=== PATIENT | male | born 1940 | race Caucasian/White ===

== ENCOUNTER 2017-08-04 19:06 | Emergency (ER) | payer OTHER, SELFPAY ==
[2017-08-04 19:27] VITALS: BP 181/100; PULSE 61; RESP 18; TEMP 36.5; O2SAT 95; BMI 27.0
[2017-08-04] MEDS: AMOXICILLIN/CLAV 875/125 MG 1 TAB PO (20:19)
--- NOTE | 2017-08-04 20:21 | ED_ITS ---
HPI - Dental/Oral <Norma Wiggins PA-C - Last Filed: 08/04/17 21:54> General Chief complaint: Dental/Oral Stated complaint: DENTAL INFECTION Time Seen by Provider: 08/04/17 19:41 Source: patient Mode of arrival: ambulatory Limitations: no limitations History of Present Illness HPI Narrative: This 76-year-old male was sent in by his dentist today due to worsening pain in his tooth sockets. He had all of his upper teeth pulled on Saturday. He states that he has had gradually worsening pain for the last 3 days , mostly along the front gum line. He states that his throat does feel somewhat sore, and feels like his neck glands are swollen. He states that he has not had any drainage from the tooth sockets. He has not had any chills or sweats or known fevers at home. He thinks his sinuses are a little bit congested, denies earache, denies cough, wheeze, dyspnea or other new symptoms. He states that his dentures have not been fitting correctly and causing irritation. He has been doing saline rinses, using ibuprofen and [place] as needed at home Related Data Home Medications Medication Instructions Recorded Confirmed MULTIVITAMIN (Multivitamin 1 cap PO Q DAY #0 04/01/10 -) VITAMIN C - Q DAY #0 04/01/10 (VITAMIN C) metoprolol succinate 12.5 mg PO DAILY 08/04/17 08/04/17 Previous Rx's Medication Instructions Recorded ibuprofen 800 mg PO TID PRN #45 tab 11/08/16 hydrocodone-acetaminophen 1 tab PO Q6HP PRN #15 tab 04/24/17 oxybutynin chloride 5 mg PO TID #90 tab 06/05/17 amoxicillin-pot clavulanate 1 tab PO Q12H 7 Days #14 tab 08/04/17 [Augmentin] Allergies Allergy/AdvReac Type Severity Reaction Status Date / Time No Known Allergies Allergy Uncoded 06/19/17 12:04 Review of Systems <Norma Wiggins PA-C - Last Filed: 08/04/17 21:54> Review of Systems All systems reviewed & are unremarkable except as noted in HPI and below Exam <AKANKSHA Keene Last Filed: 08/04/17 21:54> Narrative Exam Narrative: GENERAL APPEARANCE: Patient sitting comfortably, in no distress. HEAD: No sinus TTP. EYES: PERRL, EOMI. EARS: Normal auditory canals, TMS intact with dull light reflexes. ORAL CAVITY: Normal oropharynx. Along the upper labial surface gum line where the incisors and canines have been removed the gums have patchy erythema and edema, and are tender to touch, slightly more on the right. There is no drainage THROAT: Clear. NECK/THYROID: Neck supple, full range of motion, no cervical lymphadenopathy. LUNGS: Clear to auscultation bilaterally, clear to percussion, no cough on exam. HEART: RRR without murmur, nl S1, S2, no S3 or S4. Initial Vital Signs Initial Vital Signs: Vital Signs Temperature 97.7 F 08/04/17 19:27 Pulse Rate 61 08/04/17 19:27 Respiratory Rate 18 08/04/17 19:27 Blood Pressure 181/100 H 08/04/17 19:27 Pulse Oximetry 95 08/04/17 19:27 <DO Tona Hahn Last Filed: 08/05/17 03:02> Initial Vital Signs Initial Vital Signs: Vital Signs Temperature 97.7 F 08/04/17 19:27 Pulse Rate 61 08/04/17 19:27 Respiratory Rate 18 08/04/17 19:27 Blood Pressure 181/100 H 08/04/17 19:27 Pulse Oximetry 95 08/04/17 19:27 Course <Norma Wiggins PA-C - Last Filed: 08/04/17 21:54> Orders Ordered: Discontinued Medications Amoxicillin/Clavulanate Potassium (Augmentin 875-125 Mg) 1 tab PO NOW ONE Stop: 08/04/17 20:13 Last Admin: 08/04/17 20:19 Dose: 1 tab Vital Signs - 8 hr 08/04/17 19:27 08/04/17 20:36 Temperature 97.7 F Pulse Rate 61 60 Respiratory Rate 18 16 Blood Pressure 181/100 H 168/90 H Pulse Oximetry 95 98 <Zana Us DO - Last Filed: 08/05/17 03:02> Orders Ordered: Discontinued Medications Amoxicillin/Clavulanate Potassium (Augmentin 875-125 Mg) 1 tab PO NOW ONE Stop: 08/04/17 20:13 Last Admin: 08/04/17 20:19 Dose: 1 tab Vital Signs - 8 hr 08/04/17 19:27 08/04/17 20:36 Temperature 97.7 F Pulse Rate 61 60 Respiratory Rate 18 16 Blood Pressure 181/100 H 168/90 H Pulse Oximetry 95 98 Discharge Plan Departure Patient Disposition: Home, Self-Care Clinical Impression: Dental infection Discharge Date/Time: 08/04/17 20:37 Interventions: ED Discharge Assessment Last Done: 08/04/17 20:36 Instructions: DI for Dental Pain Activity Restrictions/Additional Instructions: Your upper gumline where you are having pain is swollen and red. This can be due to inflammation as well as infection, so continue your salt water rinses, continue current pain medications as needed. We have given you the 1st dose of antibiotic tonight. 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 Follow-up with your dentist on Saturday as planned to determine whether to continue the antibiotic Prescriptions: New amoxicillin-pot clavulanate [Augmentin] 875-125 mg tablet 1 tab PO Q12H 7 Days Qty: 14 RF: 0 No Action MULTIVITAMIN (Multivitamin -) 1 cap PO Q DAY Qty: 0 RF: 0 VITAMIN C - (VITAMIN C) Q DAY Qty: 0 RF: 0 ibuprofen 800 MG tablet 800 mg PO TID PRNQty: 45 RF: 3 hydrocodone-acetaminophen 5 MG/325 MG tablet 1 tab PO Q6HP PRNQty: 15 RF: 0 oxybutynin chloride 5 MG tablet 5 mg PO TID Qty: 90 RF: 0 metoprolol succinate 25 mg Tablet Extended Release 24 Hr 12.5 mg PO DAILY RF: 0 Referrals: Zachery Aleman DDS [Other] Gricelda Bowen DO [Primary Care Provider] - <Zana Us DO - Last Filed: 08/05/17 03:02> Cosign ED Attending Arabella Attestation: I was immediately available in the department for consultation. Documentation has been reviewed. I agree with assessment and plan.
[2017-08-04 20:36] VITALS: BP 168/90; PULSE 60; RESP 16; O2SAT 98
== END 2017-08-04 20:37 | disposition home or self-care (01) ==
PROVIDERS: Emergency Provider Internal Medicine; PCP Family Medicine
DX: K04.7 Periapical abscess without sinus (principal)
CPT/HCPCS: 99282; 99283

== ENCOUNTER → 2017-12-03 15:00 | Outpatient (CLI) | payer OTHER, SELFPAY | PROVIDERS: PCP Family Medicine | DX: Z23 Encounter for immunization (principal) | CPT/HCPCS: 90471; 90686 ==

== ENCOUNTER → 2018-03-28 12:39 | Outpatient (CLI) | payer OTHER, SELFPAY ==
--- NOTE | 2018-03-28 | DI.MRI.S_ITS ---
PROCEDURE: MR CERVICAL SPINE WO CON INDICATIONS: CERVICAL RADICULOPATHY TECHNIQUE: Noncontrast sagittal T1 spin echo and T2 fast spin echo, sagittal STIR, foraminal oblique sagittal T2 fast spin echo, and axial gradient echo or T2 fast spin echo through the cervical spine. COMPARISON: [facility], MR, C-SPINE WITHOUT CONTRAST, 11/12/2008, 9:19. [facility], MR, C-SPINE WITHOUT CONTRAST, 02/12/2014, 14:39. FINDINGS: Image quality: Diagnostic, with note made of motion artifact. Alignment and Curvature: There is normal bony alignment. Bone Marrow: Marrow demonstrates normal overall signal. Spinal Cord: Visualized spinal cord has normal size and signal. No cerebellar tonsillar herniation. Paraspinous Soft Tissues: No paravertebral masses. Prevertebral soft tissues are normal in thickness. C2-C3: The disc height is well-preserved. Loss of disc signal is seen at this level. Mild disc osteophyte complex is seen, which is eccentric to the right. There is moderate to severe right-sided neural foraminal narrowing. Mild left-sided neural foraminal narrowing is seen. Mild central canal narrowing is seen. When comparison is made with the prior examination, these findings are similar. C3-C4: Mild loss of disc height is seen. Loss of disc signal is seen. Moderate disc osteophyte complex is seen, which is eccentric to the left. There is moderate to prominent facet hypertrophy seen. Moderate to severe bilateral neural foraminal narrowing is seen at this level. Moderate central canal narrowing is seen. There is associated mild mass effect upon the ventral spinal cord. These imaging findings have progressed compared to the prior study. C4-C5: Mild loss of disc height is seen. Loss of disc signal is seen. Moderate disc osteophyte complex is seen, which is eccentric to the right. There is moderate to prominent right-sided and moderate left-sided facet hypertrophy seen. There is moderate to severe bilateral neural foraminal narrowing, right worse than left. Mild to moderate central canal narrowing is seen. These imaging findings are slightly progressed compared to 2014. C5-C6: Moderate loss of disc height is seen. Loss of disc signal is seen. Moderate to prominent disc osteophyte complex is seen, which is eccentric to the left. There is moderate to severe left-sided and moderate right-sided facet hypertrophy seen. There is moderate to severe bilateral neural foraminal narrowing seen, left worse than right. Mild to moderate central canal narrowing is seen, with mild mass effect upon the ventral spinal cord. These imaging findings are similar to the prior. C6-C7: Moderate loss of disc height is seen. Loss of disc signal is seen. Moderate to prominent disc osteophyte complex is seen. Uncovertebral joint hypertrophy is seen at this level. Mild to moderate facet hypertrophy is seen. There is moderate to severe bilateral neural foraminal narrowing seen. Mild central canal narrowing is seen. When comparison is made with the prior examination, these findings are similar. C7-T1: At least moderate loss of disc height and disc signal can be seen. Moderate generalized disc osteophyte complex is seen. Mild facet joint hypertrophy is seen. [id number] bilateral neural foraminal narrowing is seen. Mild central canal narrowing is seen. No significant change from the prior. 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 Dictated by: Peter Alonzo M.D. on 03/28/2018 at 12:17 Approved by: Peter Alonzo M.D. on 03/28/2018 at 12:24
== END ==
PROVIDERS: PCP Family Medicine; Visit Provider Orthopaedic Surgery
DX: M47.22 Other spondylosis with radiculopathy, cervical region (principal)
CPT/HCPCS: 72141

== ENCOUNTER → 2018-03-31 08:02 | Outpatient (CLI) | payer OTHER, SELFPAY ==
[2018-03-31 08:48] LABS: Add Manual Diff / Slide Review NO; Basophils Absolute Auto 100 /uL (0-100); Basophils Percent Auto 1.5 % (0-2); Eosinophils Absolute Auto 500 /uL (0-450); Eosinophils Percent Auto 8.2 % (2-4); Hematocrit 42.7 % (41-53); Hemoglobin 14.4 g/dL (13.5-17.5); Lymphocytes Absolute Auto 1600 /uL (1100-4500); Lymphocytes Percent Auto 25.9 % (25-40); Mean Corpuscular HGB Conc 33.6 % (30-36); Mean Corpuscular Hemoglobin 29.3 PG (26-34); Mean Corpuscular Volume 87.2 fL (80-100); Monocytes Absolute Auto 700 /uL (0-900); Monocytes Percent Auto 11.3 % (3-14); Neutrophils Absolute Auto 3300 /uL (1500-7000); Neutrophils Percent Auto 53.1 % (50-75); Platelet Count 239 X10^3/uL (150-400); Red Cell Distribution Width 15.2 % (11.6-14.8); White Blood Cell Count 6.1 X10^3/uL (4.5-11.0)
[2018-03-31 09:05] LABS: Alanine Aminotransferase 25 IU/L (21-72); Albumin 4.2 g/dL (3.5-5.0); Albumin Globulin Ratio 1.3 (1.0-2.8); Alkaline Phosphatase 53 U/L (38-126); Aspartate Aminotransferase 23 IU/L (17-59); BUN Creatinine Ratio 12.7 (6-22); Bilirubin Total 0.7 mg/dL (0.2-1.3); Blood Urea Nitrogen 14 mg/dL (9-20); Calcium 9.4 mg/dL (8.4-10.2); Carbon Dioxide 30 mmol/L (22-32); Chloride 106 mmol/L (98-107); Cholesterol 219 mg/dL (140-199); Estimated Glomerular Filt Rate > 60.0 mL/min (>60); Globulin 3.2 g/dL (1.7-4.1); Glucose 87 mg/dL (80-110); HDL Cholesterol 56 mg/dL (40-60); HEMOLYSIS < 15 (0-50); LDL Cholesterol Calculated 152 mg/dL (<100); Potassium 4.7 mmol/L (3.4-5.1); Sodium 143 mmol/L (137-145); Total Protein 7.4 g/dL (6.3-8.2); Triglycerides 54 mg/dL (35-150)
[2018-03-31 09:34] LABS: TSH w/ Reflex to FT4 3.65 uIU/mL (0.47-4.68)
== END ==
PROVIDERS: PCP Family Medicine; Visit Provider Family Medicine
DX: I25.10 Atherosclerotic heart disease of native coronary artery without angina pectoris (principal); Z12.5 Encounter for screening for malignant neoplasm of prostate; Z13.220 Encounter for screening for lipoid disorders
CPT/HCPCS: 36415; 80053; 80061; 84443; 85025; G0103

== ENCOUNTER → 2018-06-03 11:14 | Outpatient (CLI) | payer OTHER, SELFPAY ==
[2018-06-03 12:51] LABS: BUN Creatinine Ratio 16.4 (6-22); Blood Urea Nitrogen 18 mg/dL (9-20); Calcium 9.9 mg/dL (8.4-10.2); Carbon Dioxide 28 mmol/L (22-32); Chloride 103 mmol/L (98-107); Estimated Glomerular Filt Rate > 60.0 mL/min (>60); Glucose 78 mg/dL (80-110); HEMOLYSIS < 15 (0-50); Magnesium 2.2 mg/dL (1.6-2.3); Potassium 5.3 mmol/L (3.4-5.1); Sodium 139 mmol/L (137-145)
== END ==
PROVIDERS: PCP Family Medicine; Visit Provider Internal Medicine Cardiovascular Disease
DX: I10 Essential (primary) hypertension (principal); I49.3 Ventricular premature depolarization
CPT/HCPCS: 36415; 80048; 83735

== ENCOUNTER 2018-06-14 23:34 | Emergency (ER) | payer OTHER, SELFPAY ==
[2018-06-14 23:46] VITALS: BP 157/88; PULSE 65; RESP 15; TEMP 36.6; O2SAT 97
--- NOTE | 2018-06-14 23:48 | ED.SKABFB ---
HPI - Skin/Abscess/Foreign Bdy General Chief complaint: Skin/Abscess/Foreign Body Stated complaint: flu shot thurs, arm swollen and red Time Seen by Provider: 06/14/18 23:44 Source: patient Mode of arrival: ambulatory Limitations: no limitations History of Present Illness HPI narrative: Patient is a 77-year-old male who presents with left arm redness. He had a pneumonia vaccine 06/12/2018. He said it has hurt ever since then however tonight he noticed that it was red and warm. He has not had any fever no body aches or chills no confusion. It is very well localized in his left upper. MD complaint: rash Onset (ago): hour(s) Tetanus up to date: yes Location: LUE Severity: mild Related Data Home Medications Medication Instructions Recorded Confirmed MULTIVITAMIN (Multivitamin 1 cap PO Q DAY #0 04/01/10 -) VITAMIN C - Q DAY #0 04/01/10 (VITAMIN C) metoprolol succinate 12.5 mg PO DAILY 08/04/17 08/04/17 Previous Rx's Medication Instructions Recorded hydrocodone-acetaminophen 1 tab PO Q6HP PRN #15 tab 04/24/17 oxybutynin chloride 5 mg tablet 5 mg PO TID #90 tab 03/28/18 ibuprofen 800 mg tablet 800 mg PO TID PRN #45 tab 06/03/18 doxycycline hyclate 100 mg PO BID #14 cap 06/15/18 Allergies Allergy/AdvReac Type Severity Reaction Status Date / Time cephalexin [From Keflex] Allergy Verified 06/14/18 23:46 Review of Systems Review of Systems ROS Unobtainable: All systems reviewed & are unremarkable except as noted in HPI and below Cardiovascular Denies chest pain, Denies irregular heart rhythm, Denies lightheadedness, Denies palpitations, Denies dyspnea, Denies dyspnea on exertion and Denies orthopnea Respiratory Denies cough, Denies dyspnea, Denies dyspnea on exertion and Denies wheezing Gastrointestinal Gastrointestinal: Denies abdominal pain, Denies change in bowel habits, Denies diarrhea, Denies nausea and Denies vomiting Genitourinary Denies hematuria, Denies flank pain, Denies urinary incontinence and Denies urinary urgency Integumentary/Breasts Reports as per HPI Endocrine Denies palpitations Allergic/Immunologic Denies wheezing [facility], LAT[facility] Medical History BPH (benign prostatic hyperplasia) (Chronic) Coronary artery disease due to calcified coronary lesion (Chronic) HTN (hypertension) (Chronic) Hyperlipidemia (Chronic) Osteoarthritis (Chronic) Bladder cancer (Resolved) Surgical History History of angioplasty (03/11/15) History of cystoscopy History of knee replacement Status post laminectomy Family History (Updated 10/11/16 @ 00:00 by Gricelda Bowen DO) Father Prostate cancer Social History (Updated 08/04/17 @ 21:54 by Norma Wiggins PA-C) Smoking Status: Former smoker Family History Father Prostate cancer Social History Smoking Status: Former smoker Exam Initial Vital Signs Initial Vital Signs: Vital Signs Temperature 97.8 F 06/14/18 23:46 Pulse Rate 65 06/14/18 23:46 Respiratory Rate 15 06/14/18 23:46 Blood Pressure 157/88 H 06/14/18 23:46 Pulse Oximetry 97 06/14/18 23:46 GENERAL: Well-appearing, well-nourished and in no acute distress. HEENT: Head atraumatic,EOMI, pupils reactive, face symmetric, moist mucous membranes CARDIOVASCULAR: Regular rate and rhythm without murmurs, rubs or gallops. RESPIRATORY: Breath sounds equal bilaterally, no wheezes rales or rhonchi. ABDOMEN: Soft, nontender. Normoactive bowel sounds all 4 quadrants. No guarding or rebound. EXTREMITIES: Normal range of motion, no clubbing or edema. Neurovascularly intact NEUROLOGICAL: Alert and oriented x4.Normal gait and speech. SKIN: Erythema left upper arm 18 cm x 13 cm non circumferential no fluctuation no induration blanchable Course Orders Ordered: Discontinued Medications Doxycycline Hyclate (Vibramycin) 100 mg PO NOW ONE Stop: 06/15/18 00:03 Last Admin: 06/15/18 00:04 Dose: 100 mg Doxycycline Hyclate (Vibramycin) 100 mg PO NOW ONE Stop: 06/15/18 00:04 Last Admin: 06/15/18 00:04 Dose: 100 mg Vital Signs - 8 hr 06/14/18 23:46 Temperature 97.8 F Pulse Rate 65 Respiratory Rate 15 Blood Pressure 157/88 H Pulse Oximetry 97 MDM - Skin/Abscess/Foreign Bdy MDM Narrative Medical decision making narrative: At this time patient does not appear toxic or septic. Vitals are normal. It started this evening. He is awake alert and joyful. At this time I do not believe him to need blood work. He previously got C diff from Keflex. I discussed with them he may get C diff from any antibiotic. Will start him on doxycycline twice daily. Discharge Plan Departure Patient Disposition: Home Clinical Impression: Cellulitis Qualifiers: Site of cellulitis: extremity Site of cellulitis of extremity: upper extremity Laterality: left Qualified Code(s): L03.114 - Cellulitis of left upper limb Discharge Date/Time: 06/15/18 00:10 Interventions: ED Discharge Assessment Last Done: 06/15/18 00:08 Instructions: DI for Cellulitis -- Adult Activity Restrictions/Additional Instructions: *You have been diagnosed with cellulitis left upper arm *What to do: Monitor redness. redness should start to improve over the next 2-3 days. *Continue to take medications as directed Doxycycline 100 mg twice a day for 7 days --> SENT TO [facility] IN [place] *Follow up with your primary care provider in 2-3 days *Return to ER if you should have increasing redness significantly, pain, fever, confusion or any new, worsening or concerning symptoms Prescriptions: New doxycycline hyclate 100 mg capsule 100 mg PO BID Qty: 14 RF: 0 No Action MULTIVITAMIN (Multivitamin -) 1 cap PO Q DAY Qty: 0 RF: 0 VITAMIN C - (VITAMIN C) Q DAY Qty: 0 RF: 0 hydrocodone-acetaminophen 5 MG/325 MG tablet 1 tab PO Q6HP PRNQty: 15 RF: 0 oxybutynin chloride 5 mg tablet 5 mg PO TID Qty: 90 RF: 2 ibuprofen 800 mg tablet 800 mg PO TID PRN (Reason: fever or pain) Qty: 45 RF: 0 metoprolol succinate 25 mg Tablet Extended Release 24 Hr 12.5 mg PO DAILY RF: 0 Referrals: Gricelda Bowen DO [Primary Care Provider] -
--- NOTE | 2018-06-14 23:57 | ED_ITS ---
HPI - Skin/Abscess/Foreign Bdy General Chief complaint: Skin/Abscess/Foreign Body Stated complaint: flu shot thurs, arm swollen and red Time Seen by Provider: 06/14/18 23:44 Source: patient Mode of arrival: ambulatory Limitations: no limitations History of Present Illness HPI narrative: Patient is a 77-year-old male who presents with left arm redness. He had a pneumonia vaccine 06/12/2018. He said it has hurt ever since then however tonight he noticed that it was red and warm. He has not had any fever no body aches or chills no confusion. It is very well localized in his left upper. MD complaint: rash Onset (ago): hour(s) Tetanus up to date: yes Location: LUE Severity: mild Related Data Home Medications Medication Instructions Recorded Confirmed MULTIVITAMIN (Multivitamin 1 cap PO Q DAY #0 04/01/10 -) VITAMIN C - Q DAY #0 04/01/10 (VITAMIN C) metoprolol succinate 12.5 mg PO DAILY 08/04/17 08/04/17 Previous Rx's Medication Instructions Recorded hydrocodone-acetaminophen 1 tab PO Q6HP PRN #15 tab 04/24/17 oxybutynin chloride 5 mg tablet 5 mg PO TID #90 tab 03/28/18 ibuprofen 800 mg tablet 800 mg PO TID PRN #45 tab 06/03/18 doxycycline hyclate 100 mg PO BID #14 cap 06/15/18 Allergies Allergy/AdvReac Type Severity Reaction Status Date / Time cephalexin [From Keflex] Allergy Verified 06/14/18 23:46 Review of Systems Review of Systems ROS Unobtainable: All systems reviewed & are unremarkable except as noted in HPI and below Cardiovascular Denies chest pain, Denies irregular heart rhythm, Denies lightheadedness, Denies palpitations, Denies dyspnea, Denies dyspnea on exertion and Denies orthopnea Respiratory Denies cough, Denies dyspnea, Denies dyspnea on exertion and Denies wheezing Gastrointestinal Gastrointestinal: Denies abdominal pain, Denies change in bowel habits, Denies d iarrhea, Denies nausea and Denies vomiting Genitourinary Denies hematuria, Denies flank pain, Denies urinary incontinence and Denies urinary urgency Integumentary/Breasts Reports as per HPI Endocrine Denies palpitations Allergic/Immunologic Denies wheezing [facility] Medical History BPH (benign prostatic hyperplasia) (Chronic) Coronary artery disease due to calcified coronary lesion (Chronic) HTN (hypertension) (Chronic) Hyperlipidemia (Chronic) Osteoarthritis (Chronic) Bladder cancer (Resolved) Surgical History History of angioplasty (03/11/15) History of cystoscopy History of knee replacement Status post laminectomy Family History (Updated 10/11/16 @ 00:00 by Gricelda Bowen DO) Father Prostate cancer Social History (Updated 08/04/17 @ 21:54 by Norma Wiggins PA-C) Smoking Status: Former smoker Family History Father Prostate cancer Social History Smoking Status: Former smoker Exam Initial Vital Signs Initial Vital Signs: Vital Signs Temperature 97.8 F 06/14/18 23:46 Pulse Rate 65 06/14/18 23:46 Respiratory Rate 15 06/14/18 23:46 Blood Pressure 157/88 H 06/14/18 23:46 Pulse Oximetry 97 06/14/18 23:46 GENERAL: Well-appearing, well-nourished and in no acute distress. HEENT: Head atraumatic,EOMI, pupils reactive, face symmetric, moist mucous membranes CARDIOVASCULAR: Regular rate and rhythm without murmurs, rubs or gallops. RESPIRATORY: Breath sounds equal bilaterally, no wheezes rales or rhonchi. ABDOMEN: Soft, nontender. Normoactive bowel sounds all 4 quadrants. No guarding or rebound. EXTREMITIES: Normal range of motion, no clubbing or edema. Neurovascularly intact NEUROLOGICAL: Alert and oriented x4.Normal gait and speech. SKIN: Erythema left upper arm 18 cm x 13 cm non circumferential no fluctuation no induration blanchable Course Orders Ordered: Discontinued Medications Doxycycline Hyclate (Vibramycin) 100 mg PO NOW ONE Stop: 06/15/18 00:03 Last Admin: 06/15/18 00:04 Dose: 100 mg Doxycycline Hyclate (Vibramycin) 100 mg PO NOW ONE Stop: 06/15/18 00:04 Last Admin: 06/15/18 00:04 Dose: 100 mg Vital Signs - 8 hr 06/14/18 23:46 Temperature 97.8 F Pulse Rate 65 Respiratory Rate 15 Blood Pressure 157/88 H Pulse Oximetry 97 MDM - Skin/Abscess/Foreign Bdy MDM Narrative Medical decision making narrative: At this time patient does not appear toxic or septic. Vitals are normal. It started this evening. He is awake alert and joyful. At this time I do not believe him to need blood work. He previously got C diff from Keflex. I discussed with them he may get C diff from any antibiotic. Will start him on doxycycline twice daily. Discharge Plan Departure Patient Disposition: Home Clinical Impression: Cellulitis Qualifiers: Site of cellulitis: extremity Site of cellulitis of extremity: upper extremity Laterality: left Qualified Code(s): L03.114 - Cellulitis of left upper limb Discharge Date/Time: 06/15/18 00:10 Interventions: ED Discharge Assessment Last Done: 06/15/18 00:08 Instructions: DI for Cellulitis -- Adult Activity Restrictions/Additional Instructions: *You have been diagnosed with cellulitis left upper arm *What to do: Monitor redness. redness should start to improve over the next 2- 3 days. *Continue to take medications as directed Doxycycline 100 mg twice a day for 7 days --> SENT TO IN [place] *Follow up with your primary care provider in 2-3 days *Return to ER if you should have increasing redness significantly, pain, fever, confusion or any new, worsening or concerning symptoms Prescriptions: New doxycycline hyclate 100 mg capsule 100 mg PO BID Qty: 14 RF: 0 No Action MULTIVITAMIN (Multivitamin -) 1 cap PO Q DAY Qty: 0 RF: 0 VITAMIN C - (VITAMIN C) Q DAY Qty: 0 RF: 0 hydrocodone-acetaminophen 5 MG/325 MG tablet 1 tab PO Q6HP PRNQty: 15 RF: 0 oxybutynin chloride 5 mg tablet 5 mg PO TID Qty: 90 RF: 2 ibuprofen 800 mg tablet 800 mg PO TID PRN (Reason: fever or pain) Qty: 45 RF: 0 metoprolol succinate 25 mg Tablet Extended Release 24 Hr 12.5 mg PO DAILY RF: 0 Referrals: Gricelda Bowen DO [Primary Care Provider] -
[2018-06-15] MEDS: DOXYCYCLINE HYCLATE 100 MG TABLET PO ×2 (00:04)
== END 2018-06-15 00:10 | disposition home or self-care (01) ==
PROVIDERS: Emergency Provider Emergency Medicine; PCP Family Medicine
DX: L03.114 Cellulitis of left upper limb (principal)
CPT/HCPCS: 99282; 99283

== ENCOUNTER → 2018-06-18 07:16 | Outpatient (CLI) | payer OTHER, SELFPAY ==
[2018-06-18 09:24] LABS: BUN Creatinine Ratio 16.4 (6-22); Blood Urea Nitrogen 18 mg/dL (9-20); Calcium 9.9 mg/dL (8.4-10.2); Carbon Dioxide 27 mmol/L (22-32); Chloride 104 mmol/L (98-107); Estimated Glomerular Filt Rate > 60.0 mL/min (>60); Glucose 88 mg/dL (80-110); HEMOLYSIS < 15 (0-50); Sodium 141 mmol/L (137-145)
== END ==
PROVIDERS: PCP Family Medicine; Visit Provider Nurse Practitioner
DX: I10 Essential (primary) hypertension (principal)
CPT/HCPCS: 36415; 80048

== ENCOUNTER 2018-07-10 09:34 | Emergency (ER) | payer OTHER, SELFPAY ==
[2018-07-10] VITALS (10 sets, daily range): BP systolic 135–174; BP diastolic 76–90; PULSE 45–70; RESP 15–22; TEMP 36.3; O2SAT 95–98; BMI 26.9
--- NOTE | 2018-07-10 09:41 | DI.RAD.S_ITS ---
PROCEDURE: XR CHEST 1V INDICATIONS: chest pain TECHNIQUE: One view of the chest was acquired. COMPARISON: [facility], CHEST 2 VIEW, 09/09/2009, 10:55. [facility], CHEST 1 VIEW, 03/12/2015, 19:51. [facility], CHEST 2 VIEW, 05/13/2014, 14:03. [facility], CHEST 1 VIEW, 03/16/2015, 4:55. FINDINGS: Surgical changes and devices: None. Lungs and pleura: Lungs are clear. No pleural effusions or pneumothorax. The lungs are hyperexpanded. Mediastinum: The cardiac contours are within normal limits. The aorta demonstrates calcification and tortuosity. Bones and chest wall: Age-appropriate bony degenerative changes are seen. Truncation of the distal clavicles can be seen. No suspicious bony lesions. Overlying soft tissues appear unremarkable. IMPRESSION: No acute abnormality is seen on this portable chest study. Hyperexpanded lungs. Bony degenerative changes. Dictated by: Peter Alonzo M.D. on 07/10/2018 at 8:58 Approved by: Peter Alonzo M.D. on 07/10/2018 at 8:59
--- NOTE | 2018-07-10 09:41 | ED.ARRPALP ---
HPI - Arrhythmia/Palpitations General Chief Complaint: Chest Pain Stated Complaint: heart feels weird Time Seen by Provider: 07/10/18 09:38 Source: patient Mode of arrival: ambulatory Limitations: no limitations History of Present Illness HPI narrative: Patient is a 77-year-old male presenting with not feeling well. He has a history of coronary artery disease with multiple stents. When he has required stents in the never had chest pain but overall had a weird feeling. Today he started feeling weird after breakfast. He feels a little dizzy in his head. Dizziness isn't worse with movement or at rest. He denies room spinning. No weakness nos difficulty no chest pain or heart palpitations. He denies shortness of breath with exertion no syncopal or presyncopal episodes nodes, no nausea, no cough or fever. Can't quite pinpoint what is wrong today but is worried because of his history. Related Data Home Medications Medication Instructions Recorded Confirmed multivitamin 1 tab PO DAILY #0 04/01/10 07/10/18 metoprolol succinate 25 mg PO DAILY 08/04/17 07/10/18 Fish Oil 1 cap PO DAILY 07/10/18 07/10/18 Vitamin B 1 tab PO DAILY 07/10/18 07/10/18 aspirin 325 mg PO DAILY 07/10/18 07/10/18 lisinopril 20 mg PO DAILY 07/10/18 07/10/18 Previous Rx's Medication Instructions Recorded oxybutynin chloride 5 mg tablet 5 mg PO TID #90 tab 03/28/18 ibuprofen 800 mg tablet 800 mg PO TID PRN #45 tab 06/03/18 Allergies Allergy/AdvReac Type Severity Reaction Status Date / Time cephalexin [From Keflex] Allergy Verified 07/10/18 09:52 Review of Systems Review of Systems ROS Unobtainable: All systems reviewed & are unremarkable except as noted in HPI and below Constitutional Denies chills, Denies fever(s), Denies lethargy and Denies weakness Eyes Denies change in vision, Denies eye discharge, Denies irritation and Denies loss of vision ENT Ears, Nose, Mouth, and Throat: Denies change in voice, Denies neck pain and Denies sore throat Cardiovascular Denies chest pain, Denies irregular heart rhythm, Denies lightheadedness, Denies palpitations, Denies dyspnea, Denies dyspnea on exertion and Denies orthopnea Comments: Multiple cardiac stents Respiratory Denies cough, Denies dyspnea, Denies dyspnea on exertion and Denies wheezing Gastrointestinal Gastrointestinal: Denies abdominal pain, Denies change in bowel habits, Denies diarrhea, Denies nausea and Denies vomiting Genitourinary Denies hematuria, Denies flank pain, Denies urinary incontinence and Denies urinary urgency Musculoskeletal Denies neck pain Integumentary/Breasts Denies pruritus, Denies erythema, Denies rash and Denies wounds Neurologic Denies loss of vision and Denies weakness Endocrine Denies palpitations Allergic/Immunologic Denies wheezing [facility] Medical History BPH (benign prostatic hyperplasia) (Chronic) Coronary artery disease due to calcified coronary lesion (Chronic) HTN (hypertension) (Chronic) Hyperlipidemia (Chronic) Osteoarthritis (Chronic) Bladder cancer (Resolved) Surgical History History of angioplasty (03/11/15) History of cystoscopy History of knee replacement Status post laminectomy Family History Father Prostate cancer Social History Smoking Status: Former smoker Family History Father Prostate cancer Social History Smoking Status: Former smoker Exam Initial Vital Signs Initial Vital Signs: Vital Signs Pulse Rate 70 07/10/18 09:42 Respiratory Rate 15 07/10/18 09:42 Blood Pressure 174/86 H 07/10/18 09:42 Pulse Oximetry 98 07/10/18 09:42 GENERAL: Well-appearing, well-nourished and in no acute distress. HEENT: Head atraumatic,EOMI, pupils reactive, face symmetric, CARDIOVASCULAR: Regular rate and rhythm without murmurs, rubs or gallops. RESPIRATORY: Breath sounds equal bilaterally, no wheezes rales or rhonchi. ABDOMEN: Soft, nontender. Normoactive bowel sounds all 4 quadrants. No guarding or rebound. EXTREMITIES: Normal range of motion, no clubbing or edema. Neurovascularly intact NEUROLOGICAL: Alert and oriented x4.Normal gait and speech. Cranial nerves II through XII grossly intact. intelligence manager strength equal bilaterally 5+ on whole lower extremity strength equal as well SKIN: Warm, dry, no laceration, no petechiae, no rashes or lesions. Course Orders Ordered: ED Orders 07/10/18 09:41 XR chest 1V Stat EKG-12 Lead Stat 07/10/18 09:45 B Type Natriuretic Peptide Stat Complete Blood Count AUTO DIFF Stat Comprehensive Metabolic Panel Stat Lipase Stat Partial Thromboplastin Time Stat Prothrombin Time INR Stat Troponin & CK Cardiac Panel Stat 07/10/18 11:07 Urine Microscopic Stat 07/10/18 12:45 Troponin I Stat Discontinued Medications Aspirin (Aspirin Chew) 324 mg PO NOW ONE Stop: 07/10/18 09:42 Last Admin: 07/10/18 10:08 Dose: 324 mg Sodium Chloride (Normal Saline 0.9%) 1,000 mls @ 150 mls/hr IV CONT DIAZ Last Infusion: 07/10/18 14:18 Dose: 0 mls/hr Admin: 07/10/18 10:08 Dose: 150 mls/hr Vital Signs - 8 hr 07/10/18 10:13 07/10/18 10:32 07/10/18 11:04 Pulse Rate 56 L 51 L 53 L Respiratory Rate 21 18 19 Blood Pressure Blood Pressure [Right Arm] 153/85 H 148/88 H 151/90 H Pulse Oximetry 95 96 98 07/10/18 11:30 07/10/18 12:00 07/10/18 12:30 Pulse Rate 50 L 50 L Respiratory Rate 22 17 17 Blood Pressure Blood Pressure [Right Arm] 150/76 H 166/82 H 150/81 H Pulse Oximetry 98 98 07/10/18 13:30 07/10/18 14:18 Pulse Rate 45 L 57 L Respiratory Rate 15 16 Blood Pressure 135/79 Blood Pressure [Right Arm] 168/81 H Pulse Oximetry 98 MDM - Arrhythmia/Palpitations Lab Data Attestation: I reviewed the patient's lab results. Result diagrams: 07/10/18 09:45 07/10/18 09:45 Lab Results 07/10/18 07/10/18 07/10/18 Range/Units 09:45 09:45 09:45 WBC 4.9 (4.5-11.0) X10^3/uL RBC 5.12 (4.5-5.9) X10^6/uL Hgb 14.9 (13.5-17.5) g/dL Hct 44.6 (41-53) % MCV 87.1 (80-100) fL MCH 29.1 (26-34) PG MCHC 33.5 (30-36) % RDW 15.4 H (11.6-14.8) % Plt Count 223 (150-400) X10^3/uL Neut % (Auto) 44.9 L (50-75) % Lymph % (Auto) 38.2 (25-40) % Cache % (Auto) 10.6 (3-14) % Eos % (Auto) 4.8 H (2-4) % Baso % (Auto) 1.5 (0-2) % Neut # (Auto) 2200 (6458-4582) /uL Lymph # (Auto) 1900 (4062-2341) /uL [place] # (Auto) 500 (0-900) /uL Eos # (Auto) 200 (0-450) /uL Baso # (Auto) 100 (0-100) /uL PT 11.1 (10.1-12.7) SECONDS INR 1.0 (0.9-1.3) APTT 32 (26.4-36.2) SECONDS Sodium 140 (137-145) mmol/L Potassium 4.1 (3.4-5.1) mmol/L Chloride 104 (98-107) mmol/L Carbon Dioxide 29 (22-32) mmol/L BUN 20 (9-20) mg/dL Creatinine 1.00 (0.66-1.25) mg/dL Estimated GFR > 60.0 (>60) mL/min BUN/Creatinine Ratio 20.0 (6-22) Glucose 83 (80-110) mg/dL Calcium 9.7 (8.4-10.2) mg/dL Total Bilirubin 0.6 (0.2-1.3) mg/dL AST 23 (17-59) IU/L ALT 18 L (21-72) IU/L Alkaline Phosphatase 46 (38-126) U/L Total Creatine Kinase 59 (55-170) U/L CK-MB (CK-2) TNP CK-MB (CK-2) Rel Index TNP Troponin I < 0.012 (0.01-0.034) ng/mL B-Natriuretic Peptide < 100 (<100) Total Protein 7.4 (6.3-8.2) g/dL Albumin 4.2 (3.5-5.0) g/dL Globulin 3.2 (1.7-4.1) g/dL Albumin/Globulin Ratio 1.3 (1.0-2.8) Lipase 85 (23-300) U/L Urine RBC (0-5/HPF) Urine WBC (0-5/HPF) Urine Bacteria (None) Ur Culture Indicated? 07/10/18 07/10/18 Range/Units 11:07 12:45 WBC (4.5-11.0) X10^3/uL RBC (4.5-5.9) X10^6/uL Hgb (13.5-17.5) g/dL Hct (41-53) % MCV (80-100) fL MCH (26-34) PG MCHC (30-36) % RDW (11.6-14.8) % Plt Count (150-400) X10^3/uL Neut % (Auto) (50-75) % Lymph % (Auto) (25-40) % [place] % (Auto) (3-14) % Eos % (Auto) (2-4) % Baso % (Auto) (0-2) % Neut # (Auto) (7094-4601) /uL Lymph # (Auto) (0462-8858) /uL [place] # (Auto) (0-900) /uL Eos # (Auto) (0-450) /uL Baso # (Auto) (0-100) /uL PT (10.1-12.7) SECONDS INR (0.9-1.3) APTT (26.4-36.2) SECONDS Sodium (137-145) mmol/L Potassium (3.4-5.1) mmol/L Chloride (98-107) mmol/L Carbon Dioxide (22-32) mmol/L BUN (9-20) mg/dL Creatinine (0.66-1.25) mg/dL Estimated GFR (>60) mL/min BUN/Creatinine Ratio (6-22) Glucose (80-110) mg/dL Calcium (8.4-10.2) mg/dL Total Bilirubin (0.2-1.3) mg/dL AST (17-59) IU/L ALT (21-72) IU/L Alkaline Phosphatase (38-126) U/L Total Creatine Kinase (55-170) U/L CK-MB (CK-2) CK-MB (CK-2) Rel Index Troponin I < 0.012 (0.01-0.034) ng/mL B-Natriuretic Peptide (<100) Total Protein (6.3-8.2) g/dL Albumin (3.5-5.0) g/dL Globulin (1.7-4.1) g/dL Albumin/Globulin Ratio (1.0-2.8) Lipase (23-300) U/L Urine RBC 0-1/hpf (0-5/HPF) Urine WBC None seen (0-5/HPF) Urine Bacteria Occasional (0-1) (None) Ur Culture Indicated? Cult not indicated Urine Dip Bedside Urine Glucose Negative Bedside Urine Bilirubin - Negative Bedside Urine Ketone - Negative Urine Specific [place] 1.020 Bedside Urine Occult Blood +/- Bedside Urine pH 6.0 Bedside Urine Protein - Negative Bedside Urine Urobilinogen - Negative Bedside Urine Nitrite - Negative Bedside Urine Leukocytes - Negative Esterase Imaging Data Chest x-ray: Radiologist's impression: PROCEDURE: XR CHEST 1V INDICATIONS: chest pain TECHNIQUE: One view of the chest was acquired. COMPARISON: [facility], CHEST 2 VIEW, 09/09/2009, 10:55. [facility], CHEST 1 VIEW, 03/12/2015, 19:51. [facility], CHEST 2 VIEW, 05/13/2014, 14:03. [facility], CHEST 1 VIEW, 03/16/2015, 4:55. FINDINGS: Surgical changes and devices: None. Lungs and pleura: Lungs are clear. No pleural effusions or pneumothorax. The lungs are hyperexpanded. Mediastinum: The cardiac contours are within normal limits. The aorta demonstrates calcification and tortuosity. Bones and chest wall: Age-appropriate bony degenerative changes are seen. Truncation of the distal clavicles can be seen. No suspicious bony lesions. Overlying soft tissues appear unremarkable. IMPRESSION: No acute abnormality is seen on this portable chest study. Hyperexpanded lungs. Bony degenerative changes. Dictated by: Peter Alonzo M.D. on 07/10/2018 at 8:58 ECG Data Attestation: I personally reviewed and interpreted this ECG as follows: Prior ECG tracings: available for review Interpretation: EKG 1. Normal sinus rhythm rate 54 T-wave inversion noted in lead [address] elevation similar to previous EKG here interval 162 EKG 2. Normal sinus rhythm rate 49 similar to previous EKGs no change MDM Narrative Medical decision making narrative: Patient overall is feeling better than when he came in he has 2-troponins. He never had any chest pain or heart palpitations. Overall just feeling sort of weak but now feeling better, very vague symptoms. at this time I recommend outpatient follow-up. Discharge Plan Departure Patient Disposition: Home Clinical Impression: Atypical chest pain Discharge Date/Time: 07/10/18 14:05 Interventions: ED Discharge Assessment Last Done: 07/10/18 14:18 Instructions: DI for Atypical Chest Pain Activity Restrictions/Additional Instructions: *You have been diagnosed with atypical chest pain *What to do: Blood work EKGs x-ray all within normal limits *Continue to take medications as directed *Follow up with your primary care provider in 2-3 days *Return to ER if you should have weakness, strange feeling, dizziness or any new, worsening or concerning symptoms Prescriptions: No Action multivitamin Tablet 1 tab PO DAILY Qty: 0 RF: 0 oxybutynin chloride 5 mg tablet 5 mg PO TID Qty: 90 RF: 2 ibuprofen 800 mg tablet 800 mg PO TID PRN (Reason: fever or pain) Qty: 45 RF: 0 metoprolol succinate 25 mg Tablet Extended Release 24 Hr 25 mg PO DAILY RF: 0 lisinopril 20 mg Tablet 20 mg PO DAILY RF: 0 aspirin 325 mg Tablet 325 mg PO DAILY RF: 0 Fish Oil 1 cap PO DAILY RF: 0 Vitamin B 1 tab PO DAILY RF: 0 Referrals: Gricelda Bowen DO [Primary Care Provider] -
--- NOTE | 2018-07-10 10:03 | ED_ITS ---
HPI - Arrhythmia/Palpitations General Chief Complaint: Chest Pain Stated Complaint: heart feels weird Time Seen by Provider: 07/10/18 09:38 Source: patient Mode of arrival: ambulatory Limitations: no limitations History of Present Illness HPI narrative: Patient is a 77-year-old male presenting with not feeling well. He has a history of coronary artery disease with multiple stents. When he has required stents in the never had chest pain but overall had a weird feeling. Today he started feeling weird after breakfast. He feels a little dizzy in his head. Dizziness isn't worse with movement or at rest. He denies room spinning. No weakness nos difficulty no chest pain or heart palpitations. He denies shor tness of breath with exertion no syncopal or presyncopal episodes nodes, no nausea, no cough or fever. Can't quite pinpoint what is wrong today but is worried because of his history. Related Data Home Medications Medication Instructions Recorded Confirmed multivitamin 1 tab PO DAILY #0 04/01/10 07/10/18 metoprolol succinate 25 mg PO DAILY 08/04/17 07/10/18 Fish Oil 1 cap PO DAILY 07/10/18 07/10/18 Vitamin B 1 tab PO DAILY 07/10/18 07/10/18 aspirin 325 mg PO DAILY 07/10/18 07/10/18 lisinopril 20 mg PO DAILY 07/10/18 07/10/18 Previous Rx's Medication Instructions Recorded oxybutynin chloride 5 mg tablet 5 mg PO TID #90 tab 03/28/18 ibuprofen 800 mg tablet 800 mg PO TID PRN #45 tab 06/03/18 Allergies Allergy/AdvReac Type Severity Reaction Status Date / Time cephalexin [From Keflex] Allergy Verified 07/10/18 09:52 Review of Systems Review of Systems ROS Unobtainable: All systems reviewed & are unremarkable except as noted in HPI and below Constitutional Denies chills, Denies fever(s), Denies lethargy and Denies weakness Eyes Denies change in vision, Denies eye discharge, Denies irritation and Denies loss of vision ENT Ears, Nose, Mouth, and Throat: Denies change in voice, Denies neck pain and Denies sore throat Cardiovascular Denies chest pain, Denies irregular heart rhythm, Denies lightheadedness, Denies palpitations, Denies dyspnea, Denies dyspnea on exertion and Denies orthopnea Comments: Multiple cardiac stents Respiratory Denies cough, Denies dyspnea, Denies dyspnea on exertion and Denies wheezing Gastrointestinal Gastrointestinal: Denies abdominal pain, Denies change in bowel habits, Denies diarrhea, Denies nausea and Denies vomiting Genitourinary Denies hematuria, Denies flank pain, Denies urinary incontinence and Denies urinary urgency Musculoskeletal Denies neck pain Integumentary/Breasts Denies pruritus, Denies erythema, Denies rash and Denies wounds Neurologic Denies loss of vision and Denies weakness Endocrine Denies palpitations Allergic/Immunologic Denies wheezing [facility] Medical History BPH (benign prostatic hyperplasia) (Chronic) Coronary artery disease due to calcified coronary lesion (Chronic) HTN (hypertension) (Chronic) Hyperlipidemia (Chronic) Osteoarthritis (Chronic) Bladder cancer (Resolved) Surgical History History of angioplasty (03/11/15) History of cystoscopy History of knee replacement Status post laminectomy Family History Father Prostate cancer Social History Smoking Status: Former smoker Family History Father Prostate cancer Social History Smoking Status: Former smoker Exam Initial Vital Signs Initial Vital Signs: Vital Signs Pulse Rate 70 07/10/18 09:42 Respiratory Rate 15 07/10/18 09:42 Blood Pressure 174/86 H 07/10/18 09:42 Pulse Oximetry 98 07/10/18 09:42 GENERAL: Well-appearing, well-nourished and in no acute distress. HEENT: Head atraumatic,EOMI, pupils reactive, face symmetric, CARDIOVASCULAR: Regular rate and rhythm without murmurs, rubs or gallops. RESPIRATORY: Breath sounds equal bilaterally, no wheezes rales or rhonchi. ABDOMEN: Soft, nontender. Normoactive bowel sounds all 4 quadrants. No guarding or rebound. EXTREMITIES: Normal range of motion, no clubbing or edema. Neurovascularly intact NEUROLOGICAL: Alert and oriented x4.Normal gait and speech. Cranial nerves II through XII grossly intact. family sociologist strength equal bilaterally 5+ on whole lower extremity strength equal as well SKIN: Warm, dry, no laceration, no petechiae, no rashes or lesions. Course Orders Ordered: ED Orders 07/10/18 09:41 XR chest 1V Stat EKG-12 Lead Stat 07/10/18 09:45 B Type Natriuretic Peptide Stat Complete Blood Count AUTO DIFF Stat Comprehensive Metabolic Panel Stat Lipase Stat Partial Thromboplastin Time Stat Prothrombin Time INR Stat Troponin & CK Cardiac Panel Stat 07/10/18 11:07 Urine Microscopic Stat 07/10/18 12:45 Troponin I Stat Discontinued Medications Aspirin (Aspirin Chew) 324 mg PO NOW ONE Stop: 07/10/18 09:42 Last Admin: 07/10/18 10:08 Dose: 324 mg Sodium Chloride (Normal Saline 0.9%) 1,000 mls @ 150 mls/hr IV CONT DIAZ Last Infusion: 07/10/18 14:18 Dose: 0 mls/hr Admin: 07/10/18 10:08 Dose: 150 mls/hr Vital Signs - 8 hr 07/10/18 10:13 07/10/18 10:32 07/10/18 11:04 Pulse Rate 56 L 51 L 53 L Respiratory Rate 21 18 19 Blood Pressure Blood Pressure [Right Arm] 153/85 H 148/88 H 151/90 H Pulse Oximetry 95 96 98 07/10/18 11:30 07/10/18 12:00 07/10/18 12:30 Pulse Rate 50 L 50 L Respiratory Rate 22 17 17 Blood Pressure Blood Pressure [Right Arm] 150/76 H 166/82 H 150/81 H Pulse Oximetry 98 98 07/10/18 13:30 07/10/18 14:18 Pulse Rate 45 L 57 L Respiratory Rate 15 16 Blood Pressure 135/79 Blood Pressure [Right Arm] 168/81 H Pulse Oximetry 98 MDM - Arrhythmia/Palpitations Lab Data Attestation: I reviewed the patient's lab results. Result diagrams: 07/10/18 09:45 07/10/18 09:45 Lab Results 07/10/18 07/10/18 07/10/18 Range/Units 09:45 09:45 09:45 WBC 4.9 (4.5-11.0) X10^3/uL RBC 5.12 (4.5-5.9) X10^6/uL Hgb 14.9 (13.5-17.5) g/dL Hct 44.6 (41-53) % MCV 87.1 (80-100) fL MCH 29.1 (26-34) PG MCHC 33.5 (30-36) % RDW 15.4 H (11.6-14.8) % Plt Count 223 (150-400) X10^3/uL Neut % (Auto) 44.9 L (50-75) % Lymph % (Auto) 38.2 (25-40) % [place] % (Auto) 10.6 (3-14) % Eos % (Auto) 4.8 H (2-4) % Baso % (Auto) 1.5 (0-2) % Neut # (Auto) 2200 (2003-3534) /uL Lymph # (Auto) 1900 (2467-8691) /uL [place] # (Auto) 500 (0-900) /uL Eos # (Auto) 200 (0-450) /uL Baso # (Auto) 100 (0-100) /uL PT 11.1 (10.1-12.7) SECONDS INR 1.0 (0.9-1.3) APTT 32 (26.4-36.2) SECONDS Sodium 140 (137-145) mmol/L Potassium 4.1 (3.4-5.1) mmol/L Chloride 104 (98-107) mmol/L Carbon Dioxide 29 (22-32) mmol/L BUN 20 (9-20) mg/dL Creatinine 1.00 (0.66-1.25) mg/dL Estimated GFR > 60.0 (>60) mL/min BUN/Creatinine Ratio 20.0 (6-22) Glucose 83 (80-110) mg/dL Calcium 9.7 (8.4-10.2) mg/dL Total Bilirubin 0.6 (0.2-1.3) mg/dL AST 23 (17-59) IU/L ALT 18 L (21-72) IU/L Alkaline Phosphatase 46 (38-126) U/L Total Creatine Kinase 59 (55-170) U/L CK-MB (CK-2) TNP CK-MB (CK-2) Rel Index TNP Troponin I < 0.012 (0.01-0.034) ng/mL B-Natriuretic Peptide < 100 (<100) Total Protein 7.4 (6.3-8.2) g/dL Albumin 4.2 (3.5-5.0) g/dL Globulin 3.2 (1.7-4.1) g/dL Albumin/Globulin Ratio 1.3 (1.0-2.8) Lipase 85 (23-300) U/L Urine RBC (0-5/HPF) Urine WBC (0-5/HPF) Urine Bacteria (None) Ur Culture Indicated? 07/10/18 07/10/18 Range/Units 11:07 12:45 WBC (4.5-11.0) X10^3/uL RBC (4.5-5.9) X10^6/uL Hgb (13.5-17.5) g/dL Hct (41-53) % MCV (80-100) fL MCH (26-34) PG MCHC (30-36) % RDW (11.6-14.8) % Plt Count (150-400) X10^3/uL Neut % (Auto) (50-75) % Lymph % (Auto) (25-40) % [place] % (Auto) (3-14) % Eos % (Auto) (2-4) % Baso % (Auto) (0-2) % Neut # (Auto) (5405-2375) /uL Lymph # (Auto) (8287-2263) /uL [place] # (Auto) (0-900) /uL Eos # (Auto) (0-450) /uL Baso # (Auto) (0-100) /uL PT (10.1-12.7) SECONDS INR (0.9-1.3) APTT (26.4-36.2) SECONDS Sodium (137-145) mmol/L Potassium (3.4-5.1) mmol/L Chloride (98-107) mmol/L Carbon Dioxide (22-32) mmol/L BUN (9-20) mg/dL Creatinine (0.66-1.25) mg/dL Estimated GFR (>60) mL/min BUN/Creatinine Ratio (6-22) Glucose (80-110) mg/dL Calcium (8.4-10.2) mg/dL Total Bilirubin (0.2-1.3) mg/dL AST (17-59) IU/L ALT (21-72) IU/L Alkaline Phosphatase (38-126) U/L Total Creatine Kinase (55-170) U/L CK-MB (CK-2) CK-MB (CK-2) Rel Index Troponin I < 0.012 (0.01-0.034) ng/mL B-Natriuretic Peptide (<100) Total Protein (6.3-8.2) g/dL Albumin (3.5-5.0) g/dL Globulin (1.7-4.1) g/dL Albumin/Globulin Ratio (1.0-2.8) Lipase (23-300) U/L Urine RBC 0-1/hpf (0-5/HPF) Urine WBC None seen (0-5/HPF) Urine Bacteria Occasional (0-1) (None) Ur Culture Indicated? Cult not indicated Urine Dip Bedside Urine Glucose Negative Bedside Urine Bilirubin - Negative Bedside Urine Ketone - Negative Urine Specific [place] 1.020 Bedside Urine Occult Blood +/- Bedside Urine pH 6.0 Bedside Urine Protein - Negative Bedside Urine Urobilinogen - Negative Bedside Urine Nitrite - Negative Bedside Urine Leukocytes - Negative Esterase Imaging Data Chest x-ray: Radiologist's impression: PROCEDURE: XR CHEST 1V INDICATIONS: chest pain TECHNIQUE: One view of the chest was acquired. COMPARISON: [facility], CHEST 2 VIEW, 09/09/2009, 10:55. [facility], CHEST 1 VIEW, 03/12/2015, 19:51. [facility], CHEST 2 VIEW, 05/13/2014, 14:03. [facility], CHEST 1 VIEW, 03/16/2015, 4:55. FINDINGS: Surgical changes and devices: None. Lungs and pleura: Lungs are clear. No pleural effusions or pneumothorax. The lungs are hyperexpanded. Mediastinum: The cardiac contours are within normal limits. The aorta demonstrates calcification and tortuosity. Bones and chest wall: Age-appropriate bony degenerative changes are seen. Truncation of the distal clavicles can be seen. No suspicious bony lesions. Overlying soft tissues appear unremarkable. IMPRESSION: No acute abnormality is seen on this portable chest study. Hyperexpanded lungs. Bony degenerative changes. Dictated by: Peter Alonzo M.D. on 07/10/2018 at 8:58 ECG Data Attestation: I personally reviewed and interpreted this ECG as follows: Prior ECG tracings: available for review Interpretation: EKG 1. Normal sinus rhythm rate 54 T-wave inversion noted in lead [address] elevation similar to previous EKG here interval 162 EKG 2. Normal sinus rhythm rate 49 similar to previous EKGs no change MDM Narrative Medical decision making narrative: Patient overall is feeling better than when he came in he has 2-troponins. He never had any chest pain or heart palpitations. Overall just feeling sort of weak but now feeling better, very vague symptoms. at this time I recommend outpatient follow-up. Discharge Plan Departure Patient Disposition: Home Clinical Impression: Atypical chest pain Discharge Date/Time: 07/10/18 14:05 Interventions: ED Discharge Assessment Last Done: 07/10/18 14:18 Instructions: DI for Atypical Chest Pain Activity Restrictions/Additional Instructions: *You have been diagnosed with atypical chest pain *What to do: Blood work EKGs x-ray all within normal limits *Continue to take medications as directed *Follow up with your primary care provider in 2-3 days *Return to ER if you should have weakness, strange feeling, dizziness or any new, worsening or concerning symptoms Prescriptions: No Action multivitamin Tablet 1 tab PO DAILY Qty: 0 RF: 0 oxybutynin chloride 5 mg tablet 5 mg PO TID Qty: 90 RF: 2 ibuprofen 800 mg tablet 800 mg PO TID PRN (Reason: fever or pain) Qty: 45 RF: 0 metoprolol succinate 25 mg Tablet Extended Release 24 Hr 25 mg PO DAILY RF: 0 lisinopril 20 mg Tablet 20 mg PO DAILY RF: 0 aspirin 325 mg Tablet 325 mg PO DAILY RF: 0 Fish Oil 1 cap PO DAILY RF: 0 Vitamin B 1 tab PO DAILY RF: 0 Referrals: Gricelda Bowen DO [Primary Care Provider] -
[2018-07-10] MEDS: SODIUM CHLORIDE 0.9% 1,000 ML 150 ML IV (10:08)
[2018-07-10] MEDS: ASPIRIN 81 MG TAB 324 MG PO (10:08)
[2018-07-10 10:11] LABS: Add Manual Diff / Slide Review NO; Basophils Absolute Auto 100 /uL (0-100); Basophils Percent Auto 1.5 % (0-2); Eosinophils Absolute Auto 200 /uL (0-450); Eosinophils Percent Auto 4.8 % (2-4); Hematocrit 44.6 % (41-53); Hemoglobin 14.9 g/dL (13.5-17.5); Lymphocytes Absolute Auto 1900 /uL (1100-4500); Lymphocytes Percent Auto 38.2 % (25-40); Mean Corpuscular HGB Conc 33.5 % (30-36); Mean Corpuscular Hemoglobin 29.1 PG (26-34); Mean Corpuscular Volume 87.1 fL (80-100); Monocytes Absolute Auto 500 /uL (0-900); Monocytes Percent Auto 10.6 % (3-14); Neutrophils Absolute Auto 2200 /uL (1500-7000); Neutrophils Percent Auto 44.9 % (50-75); Platelet Count 223 X10^3/uL (150-400); Prothrombin Time 11.1 SECONDS (10.1-12.7); Red Blood Cell Count 5.12 X10^6/uL (4.5-5.9); Red Cell Distribution Width 15.4 % (11.6-14.8); White Blood Cell Count 4.9 X10^3/uL (4.5-11.0)
[2018-07-10 10:14] LABS: PTT Partial Thromboplastin Tim 32 SECONDS (26.4-36.2)
[2018-07-10 10:16] LABS: Alanine Aminotransferase 18 IU/L (21-72); Albumin 4.2 g/dL (3.5-5.0); Albumin Globulin Ratio 1.3 (1.0-2.8); Alkaline Phosphatase 46 U/L (38-126); Aspartate Aminotransferase 23 IU/L (17-59); Bilirubin Total 0.6 mg/dL (0.2-1.3); Blood Urea Nitrogen 20 mg/dL (9-20); Calcium 9.7 mg/dL (8.4-10.2); Carbon Dioxide 29 mmol/L (22-32); Chloride 104 mmol/L (98-107); Creatine Kinase 59 U/L (55-170); Estimated Glomerular Filt Rate > 60.0 mL/min (>60); Globulin 3.2 g/dL (1.7-4.1); Glucose 83 mg/dL (80-110); HEMOLYSIS < 15 (0-50); Lipase 85 U/L (23-300); Potassium 4.1 mmol/L (3.4-5.1); Sodium 140 mmol/L (137-145); Total Protein 7.4 g/dL (6.3-8.2)
[2018-07-10 10:28] LABS: Troponin I < 0.012 ng/mL (0.01-0.034)
[2018-07-10 11:09] LABS: WBC Urine None Seen (0-5/HPF)
[2018-07-10 11:23] LABS: Bacteria Urine Occasional (0-1); Culture Indicated Urine Cult Not Indicated; RBC Urine 0-1/HPF (0-5/HPF)
[2018-07-10 11:30] LABS: B Type Natriuretic Peptide < 100 (<100)
[2018-07-10 13:23] LABS: Troponin I < 0.012 ng/mL (0.01-0.034)
== END 2018-07-10 14:05 | disposition home or self-care (01) ==
PROVIDERS: Emergency Provider Emergency Medicine; PCP Family Medicine
DX: R07.89 Other chest pain (principal); R42 Dizziness and giddiness; Z86.79 Personal history of other diseases of the circulatory system; Z95.818 Presence of other cardiac implants and grafts
CPT/HCPCS: 36415; 36591; 71045; 80053; 81003; 81015; 82550; 83690; 83880; 84484; 85025; 85610; 85730; 93005; 96360; 96361; 99285

== ENCOUNTER 2018-07-14 11:05 | Emergency (ER) | payer OTHER, SELFPAY ==
[2018-07-14 11:15] VITALS: BP 127/92; PULSE 85; RESP 13; TEMP 36.6; O2SAT 99
[2018-07-14 11:30] VITALS: BP 118/83; PULSE 67; RESP 21; O2SAT 97
[2018-07-14 12:00] VITALS: BP 122/74; PULSE 79; RESP 19; O2SAT 96
--- NOTE | 2018-07-14 12:24 | ED.GENADULT ---
HPI - General Adult General Chief complaint: Dizziness Stated complaint: heart issues, sob, dizzy Time Seen by Provider: 07/14/18 12:23 Source: patient Mode of arrival: ambulatory Limitations: no limitations History of Present Illness HPI narrative: Patient is a 77-year-old male. No known coronary artery disease with a history of 7 stents placed in the past. Is on lisinopril and metoprolol. Was seen here in the emergency department a couple days ago for chest pain. 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 He states that since he was seen here in the emergency department he has had a couple other episodes of the chest discomfort. He does state that it happened on Saturday when he was on a hike. Did get better after a stop. He states that this morning he played golf in the last several holes of his golf around he had chest pain and not feeling well. Upon arrival here to the emergency department was symptom-free. Related Data Home Medications Medication Instructions Recorded Confirmed multivitamin 1 tab PO DAILY #0 04/01/10 07/14/18 metoprolol succinate 25 mg PO DAILY 08/04/17 07/14/18 Fish Oil 1 cap PO DAILY 07/10/18 07/14/18 Vitamin B 1 tab PO DAILY 07/10/18 07/14/18 aspirin 325 mg PO DAILY 07/10/18 07/14/18 lisinopril 20 mg PO DAILY 07/10/18 07/14/18 Previous Rx's Medication Instructions Recorded oxybutynin chloride 5 mg tablet 5 mg PO TID #90 tab 03/28/18 ibuprofen 800 mg tablet 800 mg PO TID PRN #45 tab 06/03/18 Allergies Allergy/AdvReac Type Severity Reaction Status Date / Time cephalexin [From Keflex] Allergy Verified 07/10/18 09:52 Review of Systems Constitutional Denies fever(s) and Denies headache(s) ENT Ears, Nose, Mouth, and Throat: Denies vertigo and Denies headache(s) Cardiovascular Reports chest pain, Denies rapid heart rate, Denies edema and Denies dyspnea Respiratory Denies dyspnea Gastrointestinal Gastrointestinal: Denies abdominal pain, Denies nausea and Denies vomiting Genitourinary Denies dysuria Integumentary/Breasts Denies rash Neurologic Denies confusion, Denies vertigo and Denies headache(s) Psychiatric Denies confusion Hematologic/Lymphatic Denies easy bleeding and Denies easy bruising Allergic/Immunologic Denies urticaria PFSH Medical History BPH (benign prostatic hyperplasia) (Chronic) Coronary artery disease due to calcified coronary lesion (Chronic) HTN (hypertension) (Chronic) Hyperlipidemia (Chronic) Osteoarthritis (Chronic) Bladder cancer (Resolved) Surgical History History of angioplasty (03/11/15) History of cystoscopy History of knee replacement Status post laminectomy Family History Father Prostate cancer Social History Smoking Status: Former smoker Social History Smoking Status: Former smoker Exam Initial Vital Signs Initial Vital Signs: Vital Signs Temperature 97.8 F 07/14/18 11:15 Pulse Rate 85 07/14/18 11:15 Respiratory Rate 13 07/14/18 11:15 Blood Pressure 127/92 H 07/14/18 11:15 Pulse Oximetry 99 07/14/18 11:15 Const General: cooperative, healthy appearing, comfortable, well developed, well groomed and No acute distress Orientation: alert, awake and oriented x3 HENMT Head: normal to inspection and normocephalic Resp Effort & Inspection: normal respiratory effort Auscultation: clear to auscultation bilaterally Cardio Rate: regular rate Rhythm: regular rhythm Pulses: radial pulses present GI Inspection: non-distended Palpation: soft and No firm Skin Lesions: no lesions Rashes: no rashes Neuro General: alert, awake and oriented x3 Cognition: normal cognition Speech: speech normal Motor: muscle tone normal throughout Sensory Exam: no sensory deficits noted Extrem General: normal to inspection and capillary refill normal Psych Appearance: grossly normal and well kempt Scores GCS Gemma coma scale eye opening: Spontaneous Gemma coma scale verbal response: Orientated [place] coma scale motor response: Obey commands [place] coma scale total score: 15 HEART Score Heart Score history: Slightly Suspicious Heart Score EKG: Non-Specific repolarization disturbance Heart Score Age: > or = 65 years old Heart Score risk factors: > 3 risk factors or hx of atherosclerotic disease Heart Score troponin: < or = to normal limit Heart Score Total: 5 Course Orders Ordered: ED Orders 07/14/18 11:14 EKG-12 Lead Stat 07/14/18 12:12 Complete Blood Count AUTO DIFF Stat Comprehensive Metabolic Panel Stat Lipase Stat Partial Thromboplastin Time Stat Prothrombin Time INR Stat Troponin I Stat Discontinued Medications Aspirin (Aspirin Chew) 324 mg PO NOW ONE Stop: 07/14/18 16:21 Vital Signs - 8 hr 07/14/18 11:15 07/14/18 11:30 07/14/18 12:00 Temperature 97.8 F Pulse Rate 85 67 79 Respiratory Rate 13 21 19 Blood Pressure 127/92 H Blood Pressure [Right Arm] 118/83 122/74 Pulse Oximetry 99 97 96 07/14/18 13:00 Temperature Pulse Rate 58 L Respiratory Rate 19 Blood Pressure Blood Pressure [Right Arm] 138/62 Pulse Oximetry 95 Medical Decision Making Lab Data Lab results reviewed: Yes I reviewed the patient's lab results. Result diagrams: 07/14/18 12:12 07/14/18 12:12 Lab Results 07/14/18 07/14/18 07/14/18 Range/Units 12:12 12:12 12:12 WBC 5.6 (4.5-11.0) X10^3/uL RBC 4.94 (4.5-5.9) X10^6/uL Hgb 14.4 (13.5-17.5) g/dL Hct 43.0 (41-53) % MCV 87.0 (80-100) fL MCH 29.0 (26-34) PG MCHC 33.4 (30-36) % RDW 14.5 (11.6-14.8) % Plt Count 212 (150-400) X10^3/uL Neut % (Auto) 53.1 (50-75) % Lymph % (Auto) 30.2 (25-40) % Logan % (Auto) 9.6 (3-14) % Eos % (Auto) 5.9 H (2-4) % Baso % (Auto) 1.2 (0-2) % Neut # (Auto) 2900 (9149-6818) /uL Lymph # (Auto) 1700 (0285-9211) /uL Logan # (Auto) 500 (0-900) /uL Eos # (Auto) 300 (0-450) /uL Baso # (Auto) 100 (0-100) /uL PT 11.2 (10.1-12.7) SECONDS INR 1.0 (0.9-1.3) APTT 30 D (26.4-36.2) SECONDS Sodium 138 (137-145) mmol/L Potassium 3.8 (3.4-5.1) mmol/L Chloride 106 (98-107) mmol/L Carbon Dioxide 24 (22-32) mmol/L BUN 17 (9-20) mg/dL Creatinine 1.10 (0.66-1.25) mg/dL Estimated GFR > 60.0 (>60) mL/min BUN/Creatinine Ratio 15.5 (6-22) Glucose 107 (80-110) mg/dL Calcium 9.2 (8.4-10.2) mg/dL Total Bilirubin 0.5 (0.2-1.3) mg/dL AST 22 (17-59) IU/L ALT 21 (21-72) IU/L Alkaline Phosphatase 48 (38-126) U/L Troponin I < 0.012 (0.01-0.034) ng/mL Total Protein 6.9 (6.3-8.2) g/dL Albumin 4.0 (3.5-5.0) g/dL Globulin 2.9 (1.7-4.1) g/dL Albumin/Globulin Ratio 1.4 (1.0-2.8) Lipase 87 (23-300) U/L ECG Data Attestation: I personally reviewed and interpreted this ECG as follows: Prior ECG tracings: not available for review Interpretation: Sinus rhythm Left axis deviation Incomplete right bundle branch block Ventricular rate is 67 Normal QRS One mm ST depression V4 V5 V6 Inverted T-wave in lead 3 and V1 MDM Narrative Medical decision making narrative: Patient symptom-free since arrival here in the emergency department. He has been having chest pain on exertion for the past couple days. He has got a heart score of 5. Has known coronary artery disease. His troponin is negative. patient had a chest x-ray done a couple days ago that was unremarkable. I did not repeat that today. Patient does have ST depressions laterally. He was given an aspirin. Discussed the case with with Cardiology who recommended the patient be admitted for stress testing. I discussed the case with Dr. Pena hospitalist that [facility] who accepts the patient. I discussed the transport with the patient. He expressed understanding and agreement. Patient is stable for transport. Discharge Plan Departure Patient Disposition: [facility] Clinical Impression: Chest pain Qualifiers: Chest pain type: unspecified Qualified Code(s): R07.9 - Chest pain, unspecified Prescriptions: No Action multivitamin Tablet 1 tab PO DAILY Qty: 0 RF: 0 oxybutynin chloride 5 mg tablet 5 mg PO TID Qty: 90 RF: 2 ibuprofen 800 mg tablet 800 mg PO TID PRN (Reason: fever or pain) Qty: 45 RF: 0 metoprolol succinate 25 mg Tablet Extended Release 24 Hr 25 mg PO DAILY RF: 0 lisinopril 20 mg Tablet 20 mg PO DAILY RF: 0 aspirin 325 mg Tablet 325 mg PO DAILY RF: 0 Fish Oil 1 cap PO DAILY RF: 0 Vitamin B 1 tab PO DAILY RF: 0 Referrals: Gricelda Bowen DO [Primary Care Provider] -
[2018-07-14 12:28] LABS: Prothrombin Time 11.2 SECONDS (10.1-12.7)
[2018-07-14 12:31] LABS: PTT Partial Thromboplastin Tim 30 SECONDS (26.4-36.2)
[2018-07-14 12:32] LABS: Alanine Aminotransferase 21 IU/L (21-72); Albumin Globulin Ratio 1.4 (1.0-2.8); Alkaline Phosphatase 48 U/L (38-126); Aspartate Aminotransferase 22 IU/L (17-59); BUN Creatinine Ratio 15.5 (6-22); Bilirubin Total 0.5 mg/dL (0.2-1.3); Blood Urea Nitrogen 17 mg/dL (9-20); Calcium 9.2 mg/dL (8.4-10.2); Carbon Dioxide 24 mmol/L (22-32); Chloride 106 mmol/L (98-107); Estimated Glomerular Filt Rate > 60.0 mL/min (>60); Globulin 2.9 g/dL (1.7-4.1); Glucose 107 mg/dL (80-110); HEMOLYSIS < 15 (0-50); Lipase 87 U/L (23-300); Potassium 3.8 mmol/L (3.4-5.1); Sodium 138 mmol/L (137-145); Total Protein 6.9 g/dL (6.3-8.2)
[2018-07-14 12:33] LABS: Add Manual Diff / Slide Review NO; Basophils Absolute Auto 100 /uL (0-100); Basophils Percent Auto 1.2 % (0-2); Eosinophils Absolute Auto 300 /uL (0-450); Eosinophils Percent Auto 5.9 % (2-4); Hemoglobin 14.4 g/dL (13.5-17.5); Lymphocytes Absolute Auto 1700 /uL (1100-4500); Lymphocytes Percent Auto 30.2 % (25-40); Mean Corpuscular HGB Conc 33.4 % (30-36); Monocytes Absolute Auto 500 /uL (0-900); Monocytes Percent Auto 9.6 % (3-14); Neutrophils Absolute Auto 2900 /uL (1500-7000); Neutrophils Percent Auto 53.1 % (50-75); Platelet Count 212 X10^3/uL (150-400); Red Blood Cell Count 4.94 X10^6/uL (4.5-5.9); Red Cell Distribution Width 14.5 % (11.6-14.8); White Blood Cell Count 5.6 X10^3/uL (4.5-11.0)
[2018-07-14 12:44] LABS: Troponin I < 0.012 ng/mL (0.01-0.034)
[2018-07-14 13:00] VITALS: BP 138/62; PULSE 58; RESP 19; O2SAT 95
--- NOTE | 2018-07-14 16:34 | PC.NURSE ---
no changes to exam, pt denies soa/cp/dizziness or other sx
[2018-07-14] MEDS: ASPIRIN 81 MG TAB 324 MG PO (16:54)
[2018-07-14 18:01] VITALS: BP 153/100; PULSE 64; RESP 15; O2SAT 100
[2018-07-14 19:00] VITALS: BP 177/89; PULSE 62; RESP 23; O2SAT 96
--- NOTE | 2018-07-14 19:29 | PC.NURSE ---
report called to Charmaine ELIAS at [facility] [id number]
== END 2018-07-14 19:29 | disposition short-term general hospital (02) ==
PROVIDERS: Emergency Provider Emergency Medicine; PCP Family Medicine
DX: R42 Dizziness and giddiness (principal); R07.9 Chest pain, unspecified; Z87.898 Personal history of other specified conditions
CPT/HCPCS: 36591; 80053; 83690; 84484; 85025; 85610; 85730; 93005; 99284

== ENCOUNTER → 2018-08-22 12:00 | Outpatient (CLI) | payer OTHER, SELFPAY ==
--- NOTE | 2018-08-22 12:01 | DI.US.S_ITS ---
PROCEDURE: US ABDOMEN LIMITED INDICATIONS: INGUINAL HERNIA TECHNIQUE: Real-time focused scanning was performed of the abdomen, with image documentation. COMPARISON: None. FINDINGS: At the right inguinal canal in the area of reported pain and numbness for 4-7 days there is a single hernia with internal peristalsing bowel, and no abnormal free fluid. IMPRESSION: Right inguinal hernia containing bowel, depending on clinical status followup by contrast enhanced CT scanning may be warranted at this time. Dictated by: Terrance Baugh M.D. on 08/22/2018 at 14:23 Approved by: Terrance Baugh M.D. on 08/22/2018 at 14:24
== END ==
PROVIDERS: PCP Family Medicine; Visit Provider Family Medicine
DX: K40.90 Unilateral inguinal hernia, without obstruction or gangrene, not specified as recurrent (principal)
CPT/HCPCS: 76705

== ENCOUNTER 2018-09-04 21:03 | Emergency (ER) | payer OTHER, SELFPAY ==
[2018-09-04 21:12] VITALS: BP 132/85; PULSE 71; RESP 20; TEMP 36.6; O2SAT 95; BMI 25.4
[2018-09-04 22:19] VITALS: BP 146/102; PULSE 61; O2SAT 100
--- NOTE | 2018-09-04 22:25 | ED_ITS ---
HPI - Abdominal Pain General Chief Complaint: Abdominal Pain Stated Complaint: HERNIA PAIN Time Seen by Provider: 09/04/18 21:58 Source: patient Mode of arrival: ambulatory Limitations: no limitations History of Present Illness HPI narrative: Patient comes emergency department complaining of pain and increased bulging of his right inguinal hernia after playing golf today. Patient states he was diagnosed with a hernia about 3 or 4 weeks ago, and has seen Dr. Morocho for this. He states that Dr. Morocho had offered to do surgery, but initially, the patient wanted to wait till golf season was over. However, patient states he called Dr. Morocho and changed his mind, but Dr. Morocho has said it will probably be a couple of weeks before he can operate. The patient states that he was in a golf tournament today, and began to notice after swinging the club and especially, after getting in and out of the cart, that his hernia seemed to be hurting worse than usual. He felt it was bulging little more than usual also. Patient states he was concerned that he may have an incarcerated hernia, so he came to the emergency department. States that he is not able to take NSAIDs, due to already being on other anticoagulants, so he can only take hydrocodone for his pain. He states he has been taking a little bit, but has had to try to ration it as he only has 3 tablets left. Patient denies any nausea or vomiting. No constipation. Patient states it hurts to have a bowel movement, but he has been able to have bowel movements as usual. No other complaints at this time. Patient states that now, he feels as though his hernia has reduced for the most part. Related Data Home Medications Medication Instructions Recorded Confirmed multivitamin 1 tab PO DAILY #0 04/01/10 08/26/18 metoprolol succinate 25 mg PO DAILY 08/04/17 08/26/18 Fish Oil 1 cap PO DAILY 07/10/18 08/26/18 Vitamin B 1 tab PO DAILY 07/10/18 08/26/18 aspirin 325 mg PO DAILY 07/10/18 08/26/18 lisinopril 20 mg PO DAILY 07/10/18 08/26/18 Previous Rx's Medication Instructions Recorded oxybutynin chloride 5 mg tablet 5 mg PO TID #90 tab 03/28/18 ibuprofen 800 mg tablet 800 mg PO TID PRN #45 tab 06/03/18 hydrocodone 5 mg-acetaminophen 325 1 tab PO Q6H PRN #15 tab 08/22/18 mg tablet hydrocodone-acetaminophen 1 tab PO Q4-6H PRN #20 tab 09/04/18 Allergies Allergy/AdvReac Type Severity Reaction Status Date / Time cephalexin [From Keflex] Allergy Verified 09/04/18 21:14 Review of Systems Constitutional Denies chills, Denies fever(s), Denies lethargy and Denies weakness Eyes Denies change in vision, Denies eye discharge, Denies irritation and Denies loss of vision ENT Ears, Nose, Mouth, and Throat: Denies change in voice, Denies neck pain and Denies sore throat Cardiovascular Denies chest pain, Denies irregular heart rhythm, Denies lightheadedness, Denies palpitations, Denies dyspnea, Denies dyspnea on exertion and Denies orthopnea Respiratory Denies cough, Denies dyspnea, Denies dyspnea on exertion and Denies wheezing Gastrointestinal Gastrointestinal: Reports abdominal pain, Denies change in bowel habits, Denies diarrhea, Denies nausea and Denies vomiting Genitourinary Denies hematuria, Denies flank pain, Denies urinary incontinence and Denies urinary urgency Musculoskeletal Denies neck pain Integumentary/Breasts Denies pruritus, Denies erythema, Denies rash and Denies wounds Neurologic Denies confusion, Denies loss of vision and Denies weakness Psychiatric Denies anxiety, Denies confusion, Denies depression, Denies homicidal ideation and Denies suicidal ideation Endocrine Denies palpitations Hematologic/Lymphatic Denies easy bruising Allergic/Immunologic Denies wheezing PFSH Medical History BPH (benign prostatic hyperplasia) (Chronic) Coronary artery disease due to calcified coronary lesion (Chronic) HTN (hypertension) (Chronic) Hyperlipidemia (Chronic) Osteoarthritis (Chronic) Bladder cancer (Resolved) Surgical History History of angioplasty (03/11/15) History of cystoscopy History of knee replacement Status post laminectomy Family History Father Prostate cancer Social History Smoking Status: Former smoker Family History Father Prostate cancer Social History Smoking Status: Former smoker Exam Initial Vital Signs Initial Vital Signs: Vital Signs Temperature 97.8 F 09/04/18 21:12 Pulse Rate 71 09/04/18 21:12 Respiratory Rate 20 09/04/18 21:12 Blood Pressure 132/85 09/04/18 21:12 Pulse Oximetry 95 09/04/18 21:12 Const General: cooperative and well developed Nutritional Appearance: well nourished Orientation: alert, awake, oriented x3 and not confused HENMT Head: normocephalic and atraumatic Ears: external ears normal and TM's normal bilaterally Nose: external nose normal and No nasal discharge Face and sinus: sinuses nontender, face symmetric, no sinus tenderness and No dry mucous membranes Mouth: oral mucosae normal and moist mucous membranes Teeth and gingiva: dentition normal Throat: tonsils normal and uvula midline Eyes General: appearance normal, both eyes and all related structures Eyelids: eyelids normal Conjunctivae: conjunctivae normal Sclera: sclerae normal Pupils: PERRL EOM: EOM intact bilaterally Neck Neck: normal visual inspection, trachea midline, No lymphadenopathy, No midline deformity and No JVD Lymphatic: No lymphedema Chest Chest: normal inspection of the chest Resp Effort & Inspection: normal respiratory effort, able to speak in complete sentences, no respiratory distress and no use of accessory muscles Auscultation: clear to auscultation bilaterally, no rales, no rhonchi and no wheezes Cardio Rate: regular rate Rhythm: regular rhythm Heart Sounds: no click, no gallops, no murmurs and no rubs Pulses: normal peripheral pulses GI Inspection: non-distended Palpation: soft, no hepatosplenomegaly, No guarding, No pulsatile mass and No t andrew Other: Patient does not have a distinct hernia in his right inguinal area. The area to which he points as noticing the swelling and pain earlier is symmetrical with the left side, and no mass or bulging is noted. There is mild tenderness in the area. Back/Spine/Pelvis Back: No CVA tenderness Cervical Spine: cervical ROM normal and No pain with cervical ROM Thoracic/Lumbar Spine: thoracic and lumbar spine normal to inspection Skin General: no rashes or lesions noted, No jaundice and No petechiae Neuro General: alert, oriented x3, gait normal and no focal motor deficits Speech: speech normal Extrem General: full ROM, no clubbing, cyanosis or edema, no pedal edema and no calf tenderness Psych Appearance: well kempt Mental Status: mental status grossly normal Attitude: cooperative Thought Content: normal and suicidality Judgment: judgment good Course Course Narrative: Patient was evaluated in the emergency department, and I did discuss with him that he does not show evidence of an incarcerated or strangulated hernia at this time. As such, there is no indication for emergent surgery tonight. I have discussed with the patient that I am happy to refill his Vicodin prescription, but that he will need to call Dr. Morocho is office in the morning to try to get a sooner appointment if this would he wishes. I will try to fax a note to Dr. Morocho is office to advise him of the patient's visit to the emergency department tonight. We have discussed the signs of incarceration, and the usual indications for return, which would include incarceration. Otherwise, the patient may take the Vicodin, as prescribed and as needed, and follow up with Dr. Morocho as soon as possible. Vital Signs - 8 hr 09/04/18 21:12 Temperature 97.8 F Pulse Rate 71 Respiratory Rate 20 Blood Pressure 132/85 Pulse Oximetry 95 MDM - Abdominal Pain Medical Records Attestation: I reviewed the patient's medical records. Discharge Plan Departure Patient Disposition: Home Clinical Impression: Hernia Discharge Date/Time: 09/04/18 22:20 Interventions: ED Discharge Assessment Last Done: 09/04/18 22:19 Instructions: DI for Groin Hernia Activity Restrictions/Additional Instructions: Your hernia is fully reducible tonight, and as such, though it is painful, there is no emergent condition at this time. As such, any surgical repair would still be done electively. Please call Dr. Morocho's office in the morning to request an appointment as soon as possible to follow up with him and schedule a surgery. It is probably best to avoid playing golf or doing any other activities which would further strain the area. You may take the hydrocodone, as needed for pain, and you may also use heat and ice to help with the discomfort. If your hernia bulges out again, and it does not go in when you lay down or with pressure, please return to the emergency department. Prescriptions: New hydrocodone-acetaminophen 5-325 mg tablet 1 tab PO Q4-6H PRN (Reason: pain) Qty: 20 RF: 0 No Action multivitamin Tablet 1 tab PO DAILY Qty: 0 RF: 0 oxybutynin chloride 5 mg tablet 5 mg PO TID Qty: 90 RF: 2 ibuprofen 800 mg tablet 800 mg PO TID PRN (Reason: fever or pain) Qty: 45 RF: 0 hydrocodone-acetaminophen 5-325 mg tablet 1 tab PO Q6H PRN (Reason: pain) Qty: 15 RF: 0 metoprolol succinate 25 mg Tablet Extended Release 24 Hr 25 mg PO DAILY RF: 0 lisinopril 20 mg Tablet 20 mg PO DAILY RF: 0 aspirin 325 mg Tablet 325 mg PO DAILY RF: 0 Fish Oil 1 cap PO DAILY RF: 0 Vitamin B 1 tab PO DAILY RF: 0 Referrals: Gricelda Bowen DO [Primary Care Provider] -
== END 2018-09-04 22:21 | disposition home or self-care (01) ==
PROVIDERS: Emergency Provider Emergency Medicine; Family Provider Family Medicine; PCP Family Medicine
DX: K46.9 Unspecified abdominal hernia without obstruction or gangrene (principal); Z79.01 Long term (current) use of anticoagulants
CPT/HCPCS: 99283

== ENCOUNTER → 2018-09-05 13:39 | Outpatient (CLI) | payer OTHER, SELFPAY ==
[2018-09-05 15:08] LABS: BUN Creatinine Ratio 15.8 (6-22); Blood Urea Nitrogen 19 mg/dL (9-20); Calcium 9.8 mg/dL (8.4-10.2); Carbon Dioxide 30 mmol/L (22-32); Chloride 105 mmol/L (98-107); Glucose 93 mg/dL (80-110); HEMOLYSIS < 15 (0-50); Potassium 4.6 mmol/L (3.4-5.1); Sodium 143 mmol/L (137-145)
== END ==
PROVIDERS: PCP Family Medicine; Visit Provider Nurse Practitioner
DX: I10 Essential (primary) hypertension (principal)
CPT/HCPCS: 36415; 80048

== ENCOUNTER → 2018-12-09 10:57 | Outpatient (CLI) | payer OTHER, SELFPAY | PROVIDERS: PCP Family Medicine | DX: Z23 Encounter for immunization (principal) | CPT/HCPCS: 90471; 90662 ==

== ENCOUNTER 2019-01-19 06:32 | Day surgery (SDC) | payer OTHER, SELFPAY ==
[2019-01-19] VITALS (14 sets, daily range): BP systolic 97–149; BP diastolic 50–95; PULSE 58–74; RESP 10–16; TEMP 36.1–36.9; O2SAT 93–100; BMI 23.8
[2019-01-19] MEDS: LACTATED RINGERS 1,000 ML 42 ML IV (07:31)
--- NOTE | 2019-01-19 07:49 | PM.PREOP ---
Pre-operative Note Interval Note History & Physical reviewed/Exam performed by Physician: Yes Changes to H&P: No
[2019-01-19] MEDS: CLINDAMYCIN 900 MG/50 ML PIGGYBACK 50 MG IV (07:50)
--- NOTE | 2019-01-19 08:23 | SUR.OPER ---
Supine on padded OR bed, head on pillow, arms secured on padded arm boards at <90 degrees abduction, legs uncrossed, safety belt at thigh, tape over blanket over lower legs.
[2019-01-19] MEDS: BUPIVACAINE 0.5% (PF) VIAL 30 ML INJ (08:31)
--- NOTE | 2019-01-19 09:25 | PM.OP.1 ---
Operative Date/Time/Diagnoses Date of procedure: 01/19/19 Time of procedure: 09:16 Pre-op diagnosis: Right inguinal hernia reducible Post-op diagnosis: same (Principally an indirect hernia) Procedure & Clinicians Procedure: Repair of plug and patch technique Same procedure as scheduled: Yes Indications: Symptomatic right inguinal hernia Surgeon: Deny Morocho Click Yes if Unassisted: Yes Anesthesia Type: General Operative Notes Findings: Large indirect sac. Closure Type: primary Specimen(s): none sent Prosthetic devices, grafts, tissues, transplants, or devices: Mesh Estimated Blood Loss (mL): 5 Blood products transfused: none Procedure in detail: The patient was placed supine on the operating room table and underwent general LMA anesthesia. He was prepped and draped in the usual fashion. A transverse incision was made overlying the internal ring and carried down to the level of the external oblique. The external oblique was opened parallel with its fibers through the external ring. The cord structures were elevated. The cremaster was opened proximally and search made for an indirect sac. It was from surrounding structures. It was opened found to have no contents. It was suture ligated with an 0 Ethibond suture. Distal portion was removed and the stump was allowed to retract.. The floor was examined and was found to be weakened but fairly intact.. A patch was placed across the floor and tacked at the pubic tubercle, the posterior lamella of the anterior rectus sheath, the ilioinguinal ligament, and superior lateral to the cord. The opening was modified as necessary to prevent tight constriction of the cord. Sutures of 0 Ethibond were used to secure the mesh. The external oblique was closed with a running 3 0 Vicryl. The subcu was closed with interrupted 4 0 Vicryl. The skin was closed with a running 4 0 Vicryl subcuticular stitch and Steri-Strips. Dressing was applied, the patient was awakened, and the patient was taken to the recovery area in good condition. Complications: none Post-operative Condition: stable Disposition: PACU Plan for aftercare: Follow-up in the office
[2019-01-19] MEDS: HYDROMORPHONE 2 MG INJ IV ×4 (09:38→10:20)
[2019-01-19] MEDS: OXYCODONE/ACETAMINOPHEN 5/325 TABLET 1 TAB PO (09:58)
--- NOTE | 2019-01-19 10:05 | SUR.PHASEI ---
Gave po pain medication for continued c/o 09/17 pain.
== END 2019-01-19 11:27 | disposition home or self-care (01) ==
PROVIDERS: PCP Family Medicine; Visit Provider Specialist
PROC: (CPT 49505; principal; 2019-01-19 07:45)
DX: K40.90 Unilateral inguinal hernia, without obstruction or gangrene, not specified as recurrent (principal); I25.10 Atherosclerotic heart disease of native coronary artery without angina pectoris; I10 Essential (primary) hypertension; E78.5 Hyperlipidemia, unspecified
CPT/HCPCS: 49505; 94762; C1781; J1100; J1170; J2250; J2405; J2704; J3010

== ENCOUNTER 2019-05-01 09:36 | Emergency (ER) | payer OTHER, SELFPAY ==
[2019-05-01 09:38] VITALS: BP 201/97; PULSE 68; RESP 16; TEMP 36.5; O2SAT 98; BMI 25.1
--- NOTE | 2019-05-01 09:42 | DI.RAD.S_ITS ---
PROCEDURE: XR CHEST 1V INDICATIONS: chest pain TECHNIQUE: One view of the chest was acquired. COMPARISON: [facility], CR, XR CHEST 1V, 07/10/2018, 9:46. FINDINGS: Surgical changes and devices: None. Lungs and pleura: Lungs are clear. No pleural effusions or pneumothorax. Mediastinum: Mediastinal contours appear normal. Heart size is normal. Bones and chest wall: No suspicious bony lesions. Overlying soft tissues appear unremarkable. IMPRESSION: No acute cardiopulmonary disease process. Dictated by: Kenyatta Castellanos MD, PhD on 05/01/2019 at 10:16 Approved by: Kenyatta Castellanos MD, PhD on 05/01/2019 at 10:16
--- NOTE | 2019-05-01 09:44 | ED_ITS ---
HPI - Chest Pain General Chief Complaint: Chest Pain Stated Complaint: heart issue Time Seen by Provider: 05/01/19 09:37 Source: patient Mode of arrival: Ambulatory Limitations: no limitations History of Present Illness HPI narrative: 78-year-old former smoker with extensive cardiac history including 8 stents presents with 2 days of episodes of left anterior chest and shoulder discomfort with some fullness in his neck and occasional dizziness. He denies any obvious provocation, palliation or radiation of the symptoms. He is not the greatest historian and it is unclear exactly how long these episodes last but he states he called his Cardiology office and they sent him here for evaluation. His last provocative testing and heart catheterization was about 9 months ago in which he was given his 8th stent. He states he has been taking all his medications as prescribed and denies any dietary change. He states that up until 2 or 3 days ago he felt fine and denies any of these symptoms whatsoever. Furthermore he denies shortness of breath, nausea, vomiting, diaphoresis or any obvious exertional provocation. He denies any recent upper respiratory complaints such as runny nose, sore throat, fever or chills. On arrival he is symptom-free MD complaint: chest pain Onset (ago): day(s) Duration: intermittent and now resolved Onset: during rest Pain location: left chest Severity: moderate Quality: aching Pain radiation: neck Relieving factors: nothing Exacerbating factors: nothing Treatments prior to arrival chest pain: aspirin and nitroglycerin Related Data Home Medications Medication Instructions Recorded Confirmed metoprolol succinate 25 mg PO DAILY 08/04/17 05/01/19 lisinopril 10 mg PO DAILY 07/10/18 05/01/19 omega [id number]-[id number]-[id number]-fish oil [Fish Oil] 1 cap PO DAILY 07/10/18 05/01/19 vitamin B complex 1 cap PO DAILY 07/10/18 05/01/19 amlodipine 5 mg tablet 5 mg PO DAILY 11/06/18 05/01/19 clopidogrel 75 mg tablet 75 mg PO DAILY 11/06/18 05/01/19 ezetimibe 10 mg tablet 10 mg PO DAILY 11/06/18 05/01/19 oxybutynin chloride 5 mg PO DAILY 01/19/19 05/01/19 Vitamin C 1 tab PO DAILY 05/01/19 05/01/19 Vitamin D3 1 cap PO DAILY 05/01/19 05/01/19 aspirin 81 mg PO DAILY 05/01/19 05/01/19 Previous Rx's Medication Instructions Recorded hydrocodone 5 mg-acetaminophen 325 1 tab PO Q6H PRN #15 tab 04/20/19 mg tablet Allergies Allergy/AdvReac Type Severity Reaction Status Date / Time cephalexin [From Keflex] Allergy Unknown c-diff Verified 02/03/19 13:55 Review of Systems Constitutional Constitutional: Denies chills, Denies fatigue, Denies fever(s), Denies frequent falls, Denies lethargy and Denies weakness Eyes Eyes: Denies change in vision, Denies eye discharge, Denies irritation and Denies loss of vision ENT Ears, Nose, Mouth, and Throat: Denies change in voice, Denies dizziness, Denies neck pain, Denies sore throat and Denies throat swelling Cardiovascular Cardiovascular: Reports chest pain, Denies irregular heart rhythm, Reports lightheadedness, Reports palpitations, Denies dyspnea, Denies dyspnea on exertion and Denies orthopnea Respiratory Respiratory: Denies cough, Denies dyspnea, Denies dyspnea on exertion and Denies wheezing Gastrointestinal Gastrointestinal: Denies abdominal pain, Denies change in bowel habits, Denies diarrhea, Denies nausea and Denies vomiting Genitourinary Genitourinary: Denies hematuria, Denies flank pain, Denies urinary incontinence and Denies urinary urgency Musculoskeletal Musculoskeletal: Denies back pain, Denies muscle weakness, Denies neck pain, Denies numbness and Denies tingling Integumentary/Breasts Skin/Breast: Denies pruritus, Denies erythema, Denies rash and Denies wounds Neurologic Neurologic: Denies behavioral changes, Denies confusion, Denies dizziness, Denies frequent falls, Denies loss of vision, Denies numbness, Denies tingling and Denies weakness Psychiatric Psychiatric: Denies anxiety, Denies behavioral changes, Denies confusion, Denies depression, Denies homicidal ideation and Denies suicidal ideation Endocrine Endocrine: Denies fatigue, Denies flushing and Reports palpitations Hematologic/Lymphatic Hematologic/Lymphatic: Denies easy bruising Allergic/Immunologic Allergic/Immunologic: Denies urticaria, Denies throat swelling and Denies wheezing Patient History Medical History (Updated 05/01/19 @ 11:57 by Zana Us DO) Bladder cancer (Resolved) BPH (benign prostatic hyperplasia) (Chronic) Coronary artery disease due to calcified coronary lesion (Chronic) HTN (hypertension) (Chronic) Hyperlipidemia (Chronic) Osteoarthritis (Chronic) Surgical History (Updated 01/19/19 @ 11:24 by Gricelda Bowen DO) H/O right inguinal hernia repair (Acute) History of angioplasty (03/11/15) History of cystoscopy History of knee replacement Status post laminectomy Social History household members: spouse Smoking Status: Former smoker Smoking Status: Former smoker alcohol intake frequency: a few times a month Substance Use Type: does not use Exam Narrative Exam Narrative: GENERAL: [78] year old patient appears stated age. Well- nourished, well-developed patient, in mild distress. HEAD: Atraumatic. Normocephalic. EYES: Pupils equal round and reactive. Extraocular motions intact. No scleral icterus. No injection or drainage. ENT: Nose without bleeding, purulent drainage. Throat without erythema, tonsillar hypertrophy or exudate. Airway patent. NECK: Trachea midline. Non tender CARDIOVASCULAR: Regular rate and rhythm without murmurs, gallops, or rubs. RESPIRATORY: Clear to auscultation. Breath sounds equal bilaterally. No wheezes, rales, or rhonchi. GASTROINTESTINAL: Abdomen soft, non-tender, nondistended. EXTREMITIES: No edema or joint tenderness. BACK: Nontender without deformity or crepitance. No flank tenderness. NEURO: AOx3. SKIN: No rash or erythema of visible areas Initial Vital Signs Initial Vital Signs: Vital Signs Temperature 97.7 F 05/01/19 09:38 Pulse Rate 68 05/01/19 09:38 Respiratory Rate 16 05/01/19 09:38 Blood Pressure 201/97 H 05/01/19 09:38 Pulse Oximetry 98 05/01/19 09:38 Course Orders Ordered: ED Orders 05/01/19 09:42 XR chest 1V Stat EKG-12 Lead Stat 05/01/19 09:45 Complete Blood Count AUTO DIFF Stat Comprehensive Metabolic Panel Stat Lipase Stat Partial Thromboplastin Time Stat Prothrombin Time INR Stat Troponin & CK Cardiac Panel Stat 05/01/19 10:19 EKG-12 Lead Stat Discontinued Medications Heparin Sodium (Porcine) (Heparin) 6,200 unit 80 unit/kg (6200 unit) IV NOW ONE Stop: 05/01/19 10:38 Last Admin: 05/01/19 10:42 Dose: 6,200 unit Documented by: MARA Heparin Sodium/Dextrose (Heparin Drip) 25,000 unit in 500 mls @ 18.507 mls/hr I V CONT DIAZ; Protocol Last Titration: 05/01/19 11:37 Dose: 0 units/kg/hr, 0 mls/hr Documented by: Admin: 05/01/19 10:42 Dose: 12 units/kg/hr, 18.507 mls/hr Documented by: MARA Consultations Consultation #1: Call to Cardiology immediately upon receipt of normal troponin to discuss patient's concerning recent history and known coronary artery disease. He quickly encouraged heparin bolus and drip and transferred to [facility] as this fits his prior pattern of unstable angina and he will need a heart catheterization Consultation #2: hospitalist at [facility] happy to accept. Vital Signs Vital signs: Vital Signs - 8 hr 05/01/19 09:38 05/01/19 11:00 05/01/19 11:35 Temperature 97.7 F Pulse Rate 68 52 L Respiratory Rate 16 16 Blood Pressure 201/97 H Blood Pressure [Left Arm] 135/77 142/87 H Pulse Oximetry 98 97 MDM - Chest Pain Lab Data Result diagrams: 05/01/19 09:45 05/01/19 09:45 Labs: Lab Results 05/01/19 05/01/19 05/01/19 Range/Units 09:45 09:45 09:45 WBC 5.8 (4.5-11.0) X10^3/uL RBC 4.86 (4.5-5.9) X10^6/uL Hgb 14.7 (13.5-17.5) g/dL Hct 43.1 (41-53) % MCV 88.6 (80-100) fL MCH 30.2 (26-34) PG MCHC 34.1 (30-36) % RDW 15.0 H (11.6-14.8) % Plt Count 212 (150-400) X10^3/uL Neut % (Auto) 52.5 (50-75) % Lymph % (Auto) 32.0 (25-40) % [place] % (Auto) 10.2 (3-14) % Eos % (Auto) 4.6 H (2-4) % Baso % (Auto) 0.7 (0-2) % Neut # (Auto) 3000 (9831-2415) /uL Lymph # (Auto) 1900 (5955-2094) /uL [place] # (Auto) 600 (0-900) /uL Eos # (Auto) 300 (0-450) /uL Baso # (Auto) 0 (0-100) /uL PT 11.3 (10.1-12.7) SECONDS INR 1.0 (0.9-1.3) APTT 31 (26.4-36.2) SECONDS Sodium 140 (137-145) mmol/L Potassium 4.1 (3.4-5.1) mmol/L Chloride 107 (98-107) mmol/L Carbon Dioxide 23 (22-32) mmol/L BUN 16 (9-20) mg/dL Creatinine 1.00 (0.66-1.25) mg/dL Estimated GFR > 60.0 (>60) mL/min BUN/Creatinine Ratio 16.0 (6-22) Glucose 118 H (80-110) mg/dL Calcium 9.6 (8.4-10.2) mg/dL Total Bilirubin 0.7 (0.2-1.3) mg/dL AST 25 (17-59) IU/L ALT 16 (<50) IU/L Alkaline Phosphatase 41 (38-126) U/L Total Creatine Kinase 46 L (55-170) U/L CK-MB (CK-2) TNP CK-MB (CK-2) Rel Index TNP Troponin I < 0.012 (0.01-0.034) ng/mL Total Protein 7.3 (6.3-8.2) g/dL Albumin 4.3 (3.5-5.0) g/dL Globulin 3.0 (1.7-4.1) g/dL Albumin/Globulin Ratio 1.4 (1.0-2.8) Lipase 73 (23-300) U/L ECG Data Attestation: I personally reviewed and interpreted this ECG as follows: Interpretation: EKG is normal sinus rhythm rate [63] and free of any signs of ischemia. No ST segmental elevation or depression. No T wave inversions. Occasional PVCs Critical Care Time Critical Care Time Critical Care Time: Yes Total Critical Care Time: 30 Attestation: The high probability of a clinically significant, sudden or life threatening deterioration of the [CV] system(s) required my full and direct attention, intervention and personal management. The aggregate critical care time was [30] minutes. This time is in addition to time spent performing reported procedures but includes the following: [x] Data Review and interpretation [x] Patient assessment and monitoring of vital signs [x] Documentation [x] Medication orders and management Discharge Plan Departure Patient Disposition: [facility] Clinical Impression: Unstable angina Discharge Date/Time: 05/01/19 11:41 Prescriptions: No Action hydrocodone-acetaminophen 5-325 mg tablet 1 tab PO Q6H PRN (Reason: pain) Qty: 15 RF: 0 clopidogrel 75 mg tablet 75 mg PO DAILY RF: 0 amlodipine 5 mg tablet 5 mg PO DAILY RF: 0 ezetimibe 10 mg tablet 10 mg PO DAILY RF: 0 metoprolol succinate 25 mg Tablet Extended Release 24 Hr 25 mg PO DAILY RF: 0 aspirin 81 mg Tablet,Delayed Release (Dr/Ec) 81 mg PO DAILY RF: 0 Vitamin C 1 tab PO DAILY RF: 0 Vitamin D3 1 cap PO DAILY RF: 0 lisinopril 20 mg Tablet 10 mg PO DAILY RF: 0 vitamin B complex Capsule 1 cap PO DAILY RF: 0 omega 8-jqr-hgo-fish oil [Fish Oil] 1,000 mg (120 mg-180 mg) Capsule 1 cap PO DAILY RF: 0 oxybutynin chloride 5 mg tablet 5 mg PO DAILY RF: 0 Referrals: Gricelda Bowen DO [Primary Care Provider] -
[2019-05-01 09:55] LABS: Add Manual Diff / Slide Review NO; Basophils Absolute Auto 0 /uL (0-100); Basophils Percent Auto 0.7 % (0-2); Eosinophils Absolute Auto 300 /uL (0-450); Eosinophils Percent Auto 4.6 % (2-4); Hematocrit 43.1 % (41-53); Hemoglobin 14.7 g/dL (13.5-17.5); Lymphocytes Absolute Auto 1900 /uL (1100-4500); Mean Corpuscular HGB Conc 34.1 % (30-36); Mean Corpuscular Hemoglobin 30.2 PG (26-34); Mean Corpuscular Volume 88.6 fL (80-100); Monocytes Absolute Auto 600 /uL (0-900); Monocytes Percent Auto 10.2 % (3-14); Neutrophils Absolute Auto 3000 /uL (1500-7000); Neutrophils Percent Auto 52.5 % (50-75); Platelet Count 212 X10^3/uL (150-400); Red Blood Cell Count 4.86 X10^6/uL (4.5-5.9); White Blood Cell Count 5.8 X10^3/uL (4.5-11.0)
[2019-05-01 10:09] LABS: Alanine Aminotransferase 16 IU/L (<50); Albumin 4.3 g/dL (3.5-5.0); Albumin Globulin Ratio 1.4 (1.0-2.8); Alkaline Phosphatase 41 U/L (38-126); Aspartate Aminotransferase 25 IU/L (17-59); Bilirubin Total 0.7 mg/dL (0.2-1.3); Blood Urea Nitrogen 16 mg/dL (9-20); Calcium 9.6 mg/dL (8.4-10.2); Carbon Dioxide 23 mmol/L (22-32); Chloride 107 mmol/L (98-107); Creatine Kinase 46 U/L (55-170); Estimated Glomerular Filt Rate > 60.0 mL/min (>60); Glucose 118 mg/dL (80-110); HEMOLYSIS < 15 (0-50); Lipase 73 U/L (23-300); Potassium 4.1 mmol/L (3.4-5.1); Prothrombin Time 11.3 SECONDS (10.1-12.7); Sodium 140 mmol/L (137-145); Total Protein 7.3 g/dL (6.3-8.2)
[2019-05-01 10:11] LABS: PTT Partial Thromboplastin Tim 31 SECONDS (26.4-36.2)
[2019-05-01 10:20] LABS: Troponin I < 0.012 ng/mL (0.01-0.034)
[2019-05-01] MEDS: HEPARIN 5,000 UNIT/ML VIAL 6200 UNIT IV (10:42)
[2019-05-01] MEDS: HEPARIN DRIP 25,000 UNIT/500 ML IV.SOLN 18.507 UNIT IV (10:42)
[2019-05-01 11:00] VITALS: BP 135/77
[2019-05-01 11:35] VITALS: BP 142/87; PULSE 52; RESP 16; O2SAT 97
== END 2019-05-01 11:41 | disposition short-term general hospital (02) ==
PROVIDERS: Emergency Provider Emergency Medicine; PCP Family Medicine
DX: I20.0 Unstable angina (principal); I10 Essential (primary) hypertension; Z79.82 Long term (current) use of aspirin
CPT/HCPCS: 36415; 71045; 80053; 82550; 83690; 84484; 85025; 85610; 85730; 93005; 96365; 96375; 99284; 99291; J1644

== ENCOUNTER → 2020-02-23 10:07 | Outpatient (CLI) | payer OTHER, SELFPAY ==
[2020-02-23 11:34] LABS: Prostate Specific Antigen 3.95 ng/mL (0.10-4.00)
== END ==
PROVIDERS: Specialist; PCP Family Medicine; Referring Provider Family Medicine; Visit Provider Internal Medicine Cardiovascular Disease
DX: E78.5 Hyperlipidemia, unspecified (principal); N40.1 Benign prostatic hyperplasia with lower urinary tract symptoms; N13.8 Other obstructive and reflux uropathy
CPT/HCPCS: 36415; 84153

== ENCOUNTER → 2020-02-24 07:05 | Outpatient (CLI) | payer OTHER, SELFPAY ==
[2020-02-24 08:18] LABS: Cholesterol 228 mg/dL (140-199); HDL Cholesterol 51 mg/dL (40-60); LDL Cholesterol Calculated 162 mg/dL (<100); Triglycerides 73 mg/dL (35-150)
== END ==
PROVIDERS: PCP Family Medicine; Referring Provider Internal Medicine Cardiovascular Disease; Visit Provider Internal Medicine Cardiovascular Disease
DX: E78.5 Hyperlipidemia, unspecified (principal)
CPT/HCPCS: 36415; 80061

== ENCOUNTER → 2020-04-15 11:06 | Outpatient (CLI) | payer OTHER, SELFPAY ==
--- NOTE | 2020-04-15 | DI.MRI.S_ITS ---
PROCEDURE: MR CERVICAL SPINE WO CON INDICATIONS: Other cervical disc degeneration TECHNIQUE: Noncontrast sagittal T1 spin echo and T2 fast spin echo, sagittal STIR, foraminal oblique sagittal T2 fast spin echo, and axial gradient echo or T2 fast spin echo through the cervical spine. COMPARISON: [facility], MR, MR CERVICAL SPINE WO CON, 03/28/2018, 12:51. FINDINGS: Image quality: Excellent. Alignment and Curvature: There is loss of normal cervical lordosis. There is mild, grade 1 anterolisthesis of C4 on C5 and C5 on C6. Bone Marrow: Marrow demonstrates normal overall signal. Mild reactive signal within the endplates adjacent to the C2-C3, C3-C4, C4-C5, C5-C6, C6-C7, C7-T1, and T2-T3 intervertebral discs. Spinal Cord: Visualized spinal cord has normal size and signal. No cerebellar tonsillar herniation. Paraspinous Soft Tissues: No paravertebral masses. Prevertebral soft tissues are normal in thickness. C2-C3: Moderate disc height loss and desiccation. Mild diffuse disc bulge. Moderate facet and uncovertebral hypertrophy. Mild canal stenosis. Severe right and moderate left foraminal stenosis. Right C3 nerve root compression. No change. C3-C4: Moderate disc height loss and desiccation. Mild diffuse disc bulge. Moderate facet and uncovertebral hypertrophy bilaterally. Moderate canal stenosis. Severe right and moderate left foraminal stenosis. Right C4 nerve root compression. No change. C4-C5: Moderate disc height loss and desiccation. Mild diffuse disc bulge. Moderate facet and uncovertebral hypertrophy bilaterally. Moderate canal stenosis. Moderate bilateral foraminal stenosis. No change. C5-C6: Moderate disc height loss and desiccation. Mild diffuse disc bulge with small superimposed broad-based left posterolateral and far lateral protrusion/osteophyte. Moderate left and mild right facet and uncovertebral hypertrophy. Moderate canal stenosis. Moderate left and mild right foraminal stenosis. No change. C6-C7: Moderate disc height loss and desiccation. Mild diffuse disc bulge. Moderate facet and uncovertebral hypertrophy bilaterally. Moderate canal stenosis. Moderate bilateral foraminal stenoses. No change. C7-T1: Moderate disc height loss and desiccation. Mild diffuse disc bulge. Mild facet and uncovertebral hypertrophy bilaterally. Mild canal stenosis. Moderate left and mild right foraminal stenosis. No change. IMPRESSION: 1. Multilevel degenerative disc and facet disease, as well as uncovertebral hypertrophy. 2. Multilevel canal stenoses, worst at C3-C4, C4-C5, C5-C6, and C6-C7, where there are moderate canal stenoses present. 3. Multilevel foraminal stenoses, worst at C2-C3 and C3-C4 where there is associated intraforaminal nerve root compression. Recommend correlation with clinical symptoms to ascertain relevance of these findings. Dictated by: Ventura Joyner M.D. on 04/15/2020 at 13:23 Approved by: Ventura Joyner M.D. on 04/15/2020 at 13:27
== END ==
PROVIDERS: PCP Family Medicine; Referring Provider Family Medicine; Visit Provider Orthopaedic Surgery
DX: M50.31 Other cervical disc degeneration, high cervical region (principal); M48.02 Spinal stenosis, cervical region
CPT/HCPCS: 72141

== ENCOUNTER → 2021-05-26 07:57 | Outpatient (CLI) | payer OTHER, SELFPAY ==
[2021-05-26 08:19] LABS: Add Manual Diff / Slide Review NO; Basophils Absolute Auto 100 /uL (0-100); Basophils Percent Auto 1.3 % (0-2); Eosinophils Absolute Auto 400 /uL (0-450); Eosinophils Percent Auto 6.7 % (2-4); Hematocrit 40.9 % (41-53); Lymphocytes Absolute Auto 1900 /uL (1100-4500); Mean Corpuscular HGB Conc 34.3 % (30-36); Mean Corpuscular Hemoglobin 29.5 PG (26-34); Mean Corpuscular Volume 86.2 fL (80-100); Monocytes Absolute Auto 700 /uL (0-900); Monocytes Percent Auto 12.2 % (3-14); Neutrophils Absolute Auto 2400 /uL (1500-7000); Neutrophils Percent Auto 43.8 % (50-75); Platelet Count 260 X10^3/uL (150-400); Red Blood Cell Count 4.74 X10^6/uL (4.5-5.9); Red Cell Distribution Width 15.3 % (11.6-14.8); White Blood Cell Count 5.4 X10^3/uL (4.5-11.0)
[2021-05-26 08:52] LABS: Alanine Aminotransferase 18 IU/L (<50); Albumin 4.3 g/dL (3.5-5.0); Albumin Globulin Ratio 1.5 (1.0-2.8); Alkaline Phosphatase 38 U/L (38-126); Aspartate Aminotransferase 24 IU/L (17-59); Bilirubin Total 0.5 mg/dL (0.2-1.3); Blood Urea Nitrogen 16 mg/dL (9-20); Calcium 9.7 mg/dL (8.4-10.2); Carbon Dioxide 28 mmol/L (22-32); Chloride 105 mmol/L (98-107); Cholesterol 240 mg/dL (140-199); Estimated Glomerular Filt Rate > 60.0 mL/min (>60); Globulin 2.9 g/dL (1.7-4.1); Glucose 94 mg/dL (80-110); HDL Cholesterol 51 mg/dL (40-60); HEMOLYSIS < 15 (0-50); LDL Cholesterol Calculated 172 mg/dL (<100); Potassium 4.4 mmol/L (3.4-5.1); Sodium 139 mmol/L (137-145); Total Protein 7.2 g/dL (6.3-8.2); Triglycerides 87 mg/dL (35-150)
[2021-05-26 09:14] LABS: TSH w/ Reflex to FT4 3.76 uIU/mL (0.47-4.68)
== END ==
PROVIDERS: PCP Family Medicine; Referring Provider Family Medicine; Visit Provider Family Medicine
DX: E78.5 Hyperlipidemia, unspecified (principal); N40.1 Benign prostatic hyperplasia with lower urinary tract symptoms; I25.10 Atherosclerotic heart disease of native coronary artery without angina pectoris; N13.8 Other obstructive and reflux uropathy; Z85.51 Personal history of malignant neoplasm of bladder; Z95.5 Presence of coronary angioplasty implant and graft
CPT/HCPCS: 36415; 80053; 80061; 84153; 84443; 85025

== ENCOUNTER → 2023-03-26 16:07 | Outpatient (CLI) | payer OTHER, SELFPAY ==
[2023-03-26 17:11] LABS: Add Manual Diff / Slide Review NO; Basophils Absolute Auto 100 /uL (0-100); Basophils Percent Auto 1.3 % (0-2); Eosinophils Absolute Auto 300 /uL (0-450); Eosinophils Percent Auto 4.6 % (2-4); Hematocrit 42.4 % (41-53); Hemoglobin 14.2 g/dL (13.5-17.5); Lymphocytes Absolute Auto 2400 /uL (1100-4500); Lymphocytes Percent Auto 33.3 % (25-40); Mean Corpuscular HGB Conc 33.5 % (30-36); Mean Corpuscular Hemoglobin 29.8 PG (26-34); Mean Corpuscular Volume 88.9 fL (80-100); Monocytes Absolute Auto 600 /uL (0-900); Neutrophils Absolute Auto 3700 /uL (1500-7000); Neutrophils Percent Auto 51.8 % (50-75); Platelet Count 294 X10^3/uL (150-400); Red Blood Cell Count 4.78 X10^6/uL (4.5-5.9); Red Cell Distribution Width 15.2 % (11.6-14.8); White Blood Cell Count 7.2 X10^3/uL (4.5-11.0)
[2023-03-26 17:36] LABS: Alanine Aminotransferase 18 IU/L (<50); Albumin 4.1 g/dL (3.5-5.0); Albumin Globulin Ratio 1.4 (1.0-2.8); Alkaline Phosphatase 43 U/L (38-126); Aspartate Aminotransferase 24 IU/L (17-59); BUN Creatinine Ratio 19.6 (6-22); Bilirubin Total 0.6 mg/dL (0.2-1.3); Blood Urea Nitrogen 21 mg/dL (9-20); Calcium 9.5 mg/dL (8.4-10.2); Carbon Dioxide 27 mmol/L (22-32); Chloride 104 mmol/L (98-107); Estimated Glomerular Filt Rate > 60 mL/min (>60); Glucose 84 mg/dL (80-110); HEMOLYSIS < 15 (0-50); Potassium 3.9 mmol/L (3.4-5.1); Sodium 139 mmol/L (137-145); Total Protein 7.1 g/dL (6.3-8.2)
[2023-03-26 19:22] LABS: Creatinine Urine Random 143.5 mg/dL
[2023-03-26 19:27] LABS: Microalbumi Creatinin Ratio Ur 9.7 ug/mg CR (<30); Microalbumin Urine Random 1.4 mg/dL (0-1.6)
[2023-03-29 14:51] LABS: PSA Free % 22.5 % (.); PSA, Total 5.7 ng/mL (0.0-4.0)
== END ==
PROVIDERS: PCP Family Medicine; Referring Provider Family Medicine; Visit Provider Family Medicine
DX: N40.1 Benign prostatic hyperplasia with lower urinary tract symptoms (principal); I10 Essential (primary) hypertension; Z85.51 Personal history of malignant neoplasm of bladder; N13.8 Other obstructive and reflux uropathy; E78.5 Hyperlipidemia, unspecified
CPT/HCPCS: 36415; 80053; 82043; 82570; 84153; 84154; 85025

== ENCOUNTER → 2023-05-22 16:07 | Outpatient (CLI) | payer OTHER, SELFPAY | PROVIDERS: PCP Family Medicine; Visit Provider Urology | DX: N40.1 Benign prostatic hyperplasia with lower urinary tract symptoms (principal); N13.8 Other obstructive and reflux uropathy; Z85.51 Personal history of malignant neoplasm of bladder; Z77.22 Contact with and (suspected) exposure to environmental tobacco smoke (acute) (chronic); Z87.891 Personal history of nicotine dependence | CPT/HCPCS: 51798; 52000; 81002; 87086 ==

== ENCOUNTER → 2023-11-11 11:19 | Outpatient (CLI) | payer OTHER, SELFPAY | PROVIDERS: PCP Family Medicine; Visit Provider Nurse Practitioner Family | DX: T14.8XXA Other injury of unspecified body region, initial encounter (principal); L08.9 Local infection of the skin and subcutaneous tissue, unspecified | CPT/HCPCS: 87070; 87075; 87077; 87147; 87186; 87205 ==

== ENCOUNTER 2023-11-12 13:29 | Emergency (ER) | payer OTHER, SELFPAY ==
[2023-11-12 13:36] VITALS: BP 143/77; PULSE 71; RESP 16; TEMP 36.6; O2SAT 97; BMI 27.3
--- NOTE | 2023-11-12 13:50 | DI.RAD.S_ITS ---
PROCEDURE: XR FOOT RT MIN 3V INDICATIONS: stepped on nail TECHNIQUE: 3 views of the foot were acquired. COMPARISON: None. FINDINGS: Bones: No fractures or dislocations. No suspicious bony lesions. Soft tissues: No tibiotalar joint effusion. Achilles tendon appears normal. No radiopaque foreign body. Vascular calcifications. IMPRESSION: No radiopaque foreign body. Dictated by: Tony Hernandez M.D. on 11/12/2023 at 14:17 Approved by: Tony Hernandez M.D. on 11/12/2023 at 14:19
--- NOTE | 2023-11-12 14:20 | ED.RECABL ---
HPI - Recheck/Abnormal Lab/Rx <Lonnie Anderson PA-C - Last Filed: 11/12/23 14:43> General Chief Complaint: Recheck/Abnormal Lab/Rx Stated Complaint: stepped on nail, antibiotics not working Time Seen by Provider: 11/12/23 13:45 Source: patient Mode of arrival: Ambulatory History of Present Illness HPI narrative: 82-year-old male with past medical history coronary artery disease, essential hypertension, hyperlipidemia, BPH presents to the ED with worsening right foot pain for 5 days. Patient states that he accidentally stepped on a nail, which punctured the sole of his lateral right foot. Patient has, swelling, redness ongoing since then. Patient was seen in the walk-in clinic 4 days ago, prescribed Bactrim. Patient states that the Bactrim gave him nausea and he felt unwell, return to the walk-in clinic, antibiotic was switched to doxycycline. Patient has taken 2 doses of the doxycycline with no improvement. Patient states that his pain is worsening. Tetanus was updated in the walk-in clinic. No fever, chills, numbness, tingling, weakness. Related Data Home Medications Medication Instructions Recorded Confirmed metoprolol succinate 25 mg 25 mg PO DAILY 08/04/17 11/19/23 tablet,extended release 24 hr omega 3-iyx-oyo-fish oil 1,000 mg 1 cap PO DAILY 07/10/18 11/19/23 (120 mg-180 mg) capsule (Fish Oil) vitamin B complex 1 cap PO DAILY 07/10/18 11/19/23 aspirin 81 mg tablet,delayed 162 mg PO DAILY 02/18/20 11/19/23 release ascorbate calcium (vitamin C) PO 09/16/23 11/19/23 cholecalciferol (vitamin D3) PO 09/16/23 11/19/23 ibuprofen 200 mg tablet 400 mg PO DAILY PRN 09/16/23 11/19/23 Previous Rx's Medication Instructions Recorded amlodipine 10 mg tablet 10 mg PO DAILY #90 tabs 04/02/22 lisinopril 10 mg tablet 10 mg PO DAILY #90 tabs 07/10/23 hydrocodone 5 mg-acetaminophen 325 1 tab PO DAILY PRN pain, severe 09/16/23 mg tablet #30 tabs hydrocodone 5 mg-acetaminophen 325 1 tab PO DAILY PRN pain, severe 09/16/23 mg tablet #30 tabs hydrocodone 5 mg-acetaminophen 325 1 tab PO Q6-8H PRN severe pain #30 09/16/23 mg tablet tabs doxycycline hyclate 100 mg tablet 100 mg PO BID #20 tabs 11/11/23 amoxicillin 875 mg-potassium 1 tab PO Q12H puncture wound/foot 11/14/23 clavulanate 125 mg tablet cellulitis 10 days #20 tabs hydrocodone 5 mg-acetaminophen 325 1 tab PO BID PRN pain #10 tabs 11/19/23 mg tablet Allergies Allergy/AdvReac Type Severity Reaction Status Date / Time cephalexin [From Keflex] Allergy Unknown c-diff Verified 11/19/23 09:43 Sulfa (Sulfonamide AdvReac Nausea Verified 11/19/23 09:43 Antibiotics) Review of Systems <Lonnie Anderson PA-C - Last Filed: 11/12/23 14:43> Constitutional Constitutional: Denies chills, Denies fatigue, Denies fever(s), Denies frequent falls, Denies lethargy and Denies weakness Eyes Eyes: Denies change in vision, Denies eye discharge, Denies irritation and Denies loss of vision ENT Ears, Nose, Mouth, and Throat: Denies change in voice, Denies dizziness, Denies neck pain, Denies sore throat and Denies throat swelling Cardiovascular Cardiovascular: Denies chest pain, Denies irregular heart rhythm, Denies lightheadedness, Denies palpitations, Denies dyspnea, Denies dyspnea on exertion and Denies orthopnea Respiratory Respiratory: Denies cough, Denies dyspnea, Denies dyspnea on exertion and Denies wheezing Gastrointestinal Gastrointestinal: Denies abdominal pain, Denies change in bowel habits, Denies diarrhea, Denies nausea and Denies vomiting Musculoskeletal Musculoskeletal: Denies neck pain and Denies numbness Integumentary/Breasts Skin/Breast: Denies pruritus, Denies erythema, Denies rash and Denies wounds Comments: Right foot swelling, redness, pain Neurologic Neurologic: Denies behavioral changes, Denies confusion, Denies dizziness, Denies frequent falls, Denies loss of vision, Denies numbness and Denies weakness Psychiatric Psychiatric: Denies anxiety, Denies behavioral changes, Denies confusion, Denies depression, Denies homicidal ideation and Denies suicidal ideation Endocrine Endocrine: Denies fatigue, Denies flushing and Denies palpitations Hematologic/Lymphatic Hematologic/Lymphatic: Denies easy bruising Allergic/Immunologic Allergic/Immunologic: Denies urticaria, Denies throat swelling and Denies wheezing Patient History <Lonnie Anderson PA-C - Last Filed: 11/12/23 14:43> Medical History (Updated 11/19/23 @ 09:46 by Peter Prajapati DO) Puncture wound of foot Cellulitis of foot History of tobacco use Secondhand smoke exposure Lower urinary tract symptoms (LUTS) Greater trochanteric bursitis of right hip (~12/2022) History of primary bladder cancer Erectile dysfunction due to arterial insufficiency Family history of prostate cancer BPH w urinary obs/LUTS Cervical radiculopathy due to degenerative joint disease of spine HTN (hypertension) Bladder cancer BPH (benign prostatic hyperplasia) Coronary artery disease due to calcified coronary lesion Hyperlipidemia Osteoarthritis Unstable angina Surgical History H/O right inguinal hernia repair History of angioplasty (03/11/15) History of knee replacement History of cystoscopy Status post laminectomy Family History Father Prostate cancer Social History household members: spouse Smoking Status: Former smoker Smoking Status: Former smoker alcohol intake frequency: a few times a month Substance Use Type: does not use Exam <Lonnie Anderson PA-C - Last Filed: 11/12/23 14:43> Narrative Exam Narrative: Const General:?cooperative, healthy appearing and comfortable [facility] Head:?normal to inspection Ears:?hearing grossly normal bilaterally Nose:?external nose normal Face and sinus:?normal facial exam and sinuses nontender Mouth:?oral mucosae normal Throat:?posterior oropharynx normal Eyes General:?appearance normal, both eyes and all related structures Neck Neck:?normal visual inspection and no lymphadenopathy noted Resp Effort & Inspection:?normal respiratory effort Auscultation:?clear to auscultation bilaterally Cardio Rate:?regular rate Rhythm:?regular rhythm Integumentary/musculoskeletal There is swelling, erythema, tenderness to palpation of lateral aspect of right foot. No discharge noted on exam. Full range of motion. Strength and sensation intact. Patient is neurovascularly intact. Neuro General:?patient alert, patient awake and patient oriented x3 Initial Vital Signs Initial Vital Signs: Vital Signs Temperature 97.9 F 11/12/23 13:36 Pulse Rate 71 11/12/23 13:36 Respiratory Rate 16 11/12/23 13:36 Blood Pressure 143/77 H 11/12/23 13:36 Pulse Oximetry 97 11/12/23 13:36 Oxygen Delivery Method Room Air 11/12/23 13:36 <Joanna Max DO - Last Filed: 11/21/23 04:40> Initial Vital Signs Initial Vital Signs: Vital Signs Temperature 97.9 F 11/12/23 13:36 Pulse Rate 71 11/12/23 13:36 Respiratory Rate 16 11/12/23 13:36 Blood Pressure 143/77 H 11/12/23 13:36 Pulse Oximetry 97 11/12/23 13:36 Oxygen Delivery Method Room Air 11/12/23 13:36 Course <Lonnie Anderson PA-C - Last Filed: 11/12/23 14:43> Orders Ordered: ED Orders 11/12/23 13:50 XR foot RT min 3V Stat Vital Signs Vital signs: Vital Signs - 8 hr 11/12/23 13:36 Temperature 97.9 F Pulse Rate 71 Respiratory Rate 16 Blood Pressure 143/77 H Pulse Oximetry 97 Oxygen Delivery Method Room Air <Joanna Max DO - Last Filed: 11/21/23 04:40> Orders Ordered: ED Orders 11/12/23 13:50 XR foot RT min 3V Stat Vital Signs Vital signs: Vital Signs - 8 hr 11/12/23 13:36 Temperature 97.9 F Pulse Rate 71 Respiratory Rate 16 Blood Pressure 143/77 H Pulse Oximetry 97 Oxygen Delivery Method Room Air MDM - Recheck/Abnormal Lab/Rx <AKANKSHA Garcia Last Filed: 11/12/23 14:43> MDM Narrative Medical decision making narrative: 82-year-old male with past medical history coronary artery disease, essential hypertension, hyperlipidemia, BPH presents to the ED with worsening right foot pain for 5 days. Concern for cellulitis versus retained foreign body versus fracture versus other. Will obtain foot x-ray, re-evaluate. Foot x-ray without acute findings of foreign body or fractures. Wound culture shows Staphylococcus aureus. No sensitivities ascertained yet. Patient has only taken 2 doses of doxycycline so far. Discussed with patient that staff is usually very susceptible to doxycycline and that he can continue it and monitor for improvement. Patient is also prescribed clindamycin which he has the option to start if the doxycycline does not improve his symptoms over the next 2 days. Recommend follow-up with PCP as soon as possible. ED return precautions discussed with patient. Patient verbalized understanding. Medical records reviewed: Yes Discharge Plan Departure Patient Disposition: Home Clinical Impression: Cellulitis Instructions: DI for Cellulitis -- Adult Activity Restrictions/Additional Instructions: You were evaluated in the ED today for a foot infection. Your x-ray was normal. The wound specimen that was cultured shows a staph infection. You may continue the doxycycline which is usually effective for this type of infection. You were also being prescribed clindamycin which is an alternative antibiotic that you may take if the doxycycline is not improving your symptoms over the next day or 2. Please follow-up with your PCP as soon as possible. Return to the ED if you have worsening symptoms, fever, chills, vomiting. Prescriptions: No Action doxycycline hyclate 100 mg tablet 100 mg PO BID Qty: 20 0RF aspirin 81 mg tablet,delayed release (DR/EC) 162 mg PO DAILY lisinopril 10 mg tablet 10 mg PO DAILY Qty: 90 3RF amlodipine 10 mg tablet 10 mg PO DAILY Qty: 90 0RF ibuprofen 200 mg tablet 400 mg PO DAILY PRN ascorbate calcium (vitamin C) PO cholecalciferol (vitamin D3) PO hydrocodone-acetaminophen 5-325 mg tablet 1 tab PO Q6-8H PRN (Reason: severe pain) Qty: 30 0RF Rx Instructions: 1 of 3 Caution regarding possible sedation and falls. limit use as possible hydrocodone-acetaminophen 5-325 mg tablet 1 tab PO DAILY PRN (Reason: pain, severe) Qty: 30 0RF Rx Instructions: script 2 of 3 caution re sedation and falls, limit use as able hydrocodone-acetaminophen 5-325 mg tablet 1 tab PO DAILY PRN (Reason: pain, severe) Qty: 30 0RF Hold Instructions: using less than one daily Rx Instructions: caution with sedation script 3 of 3, needs visit prior to next fill hydrocodone-acetaminophen 5-325 mg tablet 1 tab PO BID PRN (Reason: pain) Qty: 10 0RF metoprolol succinate 25 mg Tablet Extended Release 24 Hr 25 mg PO DAILY amoxicillin-pot clavulanate 875-125 mg tablet 1 tab PO Q12H 10 Days Qty: 20 0RF vitamin B complex Capsule 1 cap PO DAILY omega 5-yfm-piq-fish oil [Fish Oil] 1,000 mg (120 mg-180 mg) Capsule 1 cap PO DAILY Referrals: Wilma Kamara DO [Primary Care Provider] - Stand Alone Forms: Patient Portal/API ED Sign-out <Joanna Max DO - Last Filed: 11/21/23 04:40> Cosign ED Attending Cosignature Attestation: I was immediately available in the department for consultation.
[2023-11-12 14:50] VITALS: BP 161/78; PULSE 64; RESP 18; O2SAT 97
== END 2023-11-12 14:50 | disposition home or self-care (01) ==
PROVIDERS: Emergency Provider Student in an Organized Health Care Education/Training Program; PCP Family Medicine
DX: L03.115 Cellulitis of right lower limb (principal)
CPT/HCPCS: 73630; 99283

== ENCOUNTER 2023-11-14 13:00 | Emergency (ER) | payer OTHER, SELFPAY ==
[2023-11-14 13:08] VITALS: BP 155/92; PULSE 87; RESP 18; TEMP 36.9; O2SAT 96; BMI 28.2
--- NOTE | 2023-11-14 14:05 | ED_ITS ---
HPI - Skin/Abscess/Foreign Bdy <Rosa Saldana PA-C - Last Filed: 11/14/23 15:56> General Chief complaint: Skin/Abscess/Foreign Body Stated complaint: staff infection not feeling better, in ER 2 dys ag Time Seen by Provider: 11/14/23 14:00 Source: patient Mode of arrival: Wheelchair Limitations: no limitations History of Present Illness HPI narrative: 82-year-old male with history of CAD, hypertension, hyperlipidemia presents with concern for persistent cellulitis in his right foot after he sustained a puncture wound in the end of October 6 days ago. Patient took 2 days of Bactrim which made him nauseous and went back to walk-in clinic where he was prescribed doxycycline. He went to the emergency department on Saturday 4 days ago and was prescribed clindamycin which he states he has not started because they recommended he wait to see if the doxycycline worked. States the area of redness on the top of his foot has not worsened but it has also not improved at all. He has been taking doxycycline only. He has been taking it for 4 days. He states he has been having a little bit of body aches yesterday and today and generally feeling a little unwell and fatigued compared to normal but has not had nausea vomiting reduced appetite, or measurable fever. He came in today with his with concern that the antibiotics are not working and he is hesitant to start the clindamycin due to his history of C diff. Related Data Home Medications Medication Instructions Recorded Confirmed metoprolol succinate 25 mg 25 mg PO DAILY 08/04/17 11/11/23 tablet,extended release 24 hr omega 5-pus-jib-fish oil 1,000 mg 1 cap PO DAILY 07/10/18 11/11/23 (120 mg-180 mg) capsule (Fish Oil) vitamin B complex 1 cap PO DAILY 07/10/18 11/11/23 aspirin 81 mg tablet,delayed 162 mg PO DAILY 02/18/20 11/11/23 release ascorbate calcium (vitamin C) PO 09/16/23 11/11/23 cholecalciferol (vitamin D3) PO 09/16/23 11/11/23 ibuprofen 200 mg tablet 400 mg PO DAILY PRN 09/16/23 11/11/23 Previous Rx's Medication Instructions Recorded amlodipine 10 mg tablet 10 mg PO DAILY #90 tabs 04/02/22 lisinopril 10 mg tablet 10 mg PO DAILY #90 tabs 07/10/23 hydrocodone 5 mg-acetaminophen 325 1 tab PO DAILY PRN pain, severe 09/16/23 mg tablet #30 tabs hydrocodone 5 mg-acetaminophen 325 1 tab PO DAILY PRN pain, severe 09/16/23 mg tablet #30 tabs hydrocodone 5 mg-acetaminophen 325 1 tab PO Q6-8H PRN severe pain #30 09/16/23 mg tablet tabs sulfamethoxazole 800 2 tab PO BID Cellulitis 7 days #28 11/09/23 mg-trimethoprim 160 mg tablet tabs (Bactrim DS) doxycycline hyclate 100 mg tablet 100 mg PO BID #20 tabs 11/11/23 clindamycin HCl 150 mg capsule 450 mg (3 x 150 mg) PO TID 5 days 11/12/23 #45 caps amoxicillin 875 mg-potassium 1 tab PO Q12H puncture wound/foot 11/14/23 clavulanate 125 mg tablet cellulitis 10 days #20 tabs Allergies Allergy/AdvReac Type Severity Reaction Status Date / Time cephalexin [From Keflex] Allergy Unknown c-diff Verified 11/11/23 10:18 Sulfa (Sulfonamide AdvReac Nausea Verified 11/12/23 13:38 Antibiotics) Review of Systems <Rosa Saldana PA-C - Last Filed: 11/14/23 15:56> Review of Systems Narrative: See HPI Patient History <Rosa Saldana PA-C - Last Filed: 11/14/23 15:56> Medical History History of tobacco use Secondhand smoke exposure Lower urinary tract symptoms (LUTS) Greater trochanteric bursitis of right hip (~12/2022) History of primary bladder cancer Erectile dysfunction due to arterial insufficiency Family history of prostate cancer BPH w urinary obs/LUTS Cervical radiculopathy due to degenerative joint disease of spine HTN (hypertension) Bladder cancer BPH (benign prostatic hyperplasia) Coronary artery disease due to calcified coronary lesion Hyperlipidemia Osteoarthritis Unstable angina Surgical History H/O right inguinal hernia repair History of angioplasty (03/11/15) History of knee replacement History of cystoscopy Status post laminectomy Family History Father Prostate cancer Social History household members: spouse Smoking Status: Former smoker Smoking Status: Former smoker alcohol intake frequency: 0-2 drinks per day Substance Use Type: does not use Exam <Rosa Saldana PA-C - Last Filed: 11/14/23 15:56> Narrative Exam Narrative: GENERAL: [82] year old patient appears younger than stated age. Healthy appearing, nontoxic Well-developed patient, in mild distress. HEAD: Atraumatic. Normocephalic. EYES: Pupils equal round and reactive. Extraocular motions intact. No scleral icterus. No injection or drainage. ENT: Nose without bleeding, purulent drainage. Airway patent. NECK: Trachea midline. Non tender CARDIOVASCULAR: Regular rate and rhythm without murmurs, gallops, or rubs. RESPIRATORY: Clear to auscultation. Breath sounds equal bilaterally. No wheezes, rales, or rhonchi. GASTROINTESTINAL: Abdomen soft, non-tender, nondistended. EXTREMITIES: See skin No edema or joint tenderness. BACK: Nontender without deformity or crepitance. No flank tenderness. NEURO: AOx3. SKIN: The dorsum and lateral aspect of the right foot has mild erythema. There is visible site of a previous puncture wound on the mid/lateral portion of the ball of the patient's right foot. Without drainage abscess or erythema noted. There is slight associated edema/swelling of the foot and ankle. Erythema spares the toes ankle and remainder of the lower extremity. Range of motion is intact and pain-free. No rash or erythema of visible areas Initial Vital Signs Initial Vital Signs: Vital Signs Temperature 98.4 F 11/14/23 13:08 Pulse Rate 87 11/14/23 13:08 Respiratory Rate 18 11/14/23 13:08 Blood Pressure 155/92 H 11/14/23 13:08 Pulse Oximetry 96 11/14/23 13:08 Oxygen Delivery Method Room Air 11/14/23 13:08 <Hugo Tang MD - Last Filed: 11/14/23 21:04> Initial Vital Signs Initial Vital Signs: Vital Signs Temperature 98.4 F 11/14/23 13:08 Pulse Rate 87 11/14/23 13:08 Respiratory Rate 18 11/14/23 13:08 Blood Pressure 155/92 H 11/14/23 13:08 Pulse Oximetry 96 11/14/23 13:08 Oxygen Delivery Method Room Air 11/14/23 13:08 Course <Rosa Saldana PA-C - Last Filed: 11/14/23 15:56> Consultations Consultation #1: I spoke with the hospital pharmacist face about this patient given he has been on 4 days of doxycycline with a staph aureus infection found on culture and has not had improvement (no worsening). She feels it would be reasonable to additionally cover for strep even though this did not come up on the culture and given this originally started as puncture wound we agree Augmentin may be a good choice as this will give more broad coverage we can stop the doxycycline and start Augmentin. She recommends given his history of C diff that he not start the clindamycin he was prescribed a few days ago. 1457 Vital Signs Vital signs: Vital Signs - 8 hr 11/14/23 13:08 11/14/23 15:24 Temperature 98.4 F Pulse Rate 87 71 Respiratory Rate 18 14 Blood Pressure 155/92 H 168/84 H Pulse Oximetry 96 98 Oxygen Delivery Method Room Air Room Air <Hugo Tang MD - Last Filed: 11/14/23 21:04> Vital Signs Vital signs: Vital Signs - 8 hr 11/14/23 13:08 11/14/23 15:24 Temperature 98.4 F Pulse Rate 87 71 Respiratory Rate 18 14 Blood Pressure 155/92 H 168/84 H Pulse Oximetry 96 98 Oxygen Delivery Method Room Air Room Air MDM - Skin/Abscess/Foreign Bdy <Rosa Saldana PA-C - Last Filed: 11/14/23 15:56> Differential Diagnosis Differential diagnosis: Likely cellulitis and other (puncture wound) MDM Narrative Medical decision making narrative: 82-year-old male presents with concern for persistent skin infection of his right foot despite 4 days of doxycycline. He was seen in this emergency department on Saturday 4 days ago at which time he had an unremarkable foot x-ray and was advised to continue the doxycycline and consider starting clindamycin in 2 days' time if he was not improving, he has not started the clindamycin yet. Per patient and his the erythema and mild swelling of his foot has not worsened but also not improved. Patient is nontoxic appearing with unremarkable vitals today. I do have concern that this originated as a puncture wound and may require additional coverage and consulted pharmacy who agreed and re commended Augmentin. Did have a culture done early this week which showed staph aureus which should be sensitive to doxycycline. Suspect there could possibly be some anaerobic involvement or strep involvement which simply did not come back on culture after discussion with pharmacist. Based on only 4 days of doxycycline, non worsening, no systemic symptoms or concerning vitals sepsis workup is not pursued today. Did discuss very careful return precautions with the patient and his noting he develops new or worsening symptoms or still has no improvement after 3-4 doses of Augmentin he should seek re-evaluation in the emergency department. They are in understanding and agreement with the plan. Labs were not obtained today. Additional imaging was not obtained today. Patient was advised to stop taking the doxycycline and not to start the clindamycin as he has a history of C diff. Augmentin should be appropriate for coverage instead. Return precautions provided, follow-up plan discussed, all questions answered. Discharge Plan Departure Patient Disposition: Home Clinical Impression: Cellulitis of foot Puncture wound of foot Qualifiers: Encounter type: subsequent encounter Laterality: right Qualified Code(s): S91.331D - Puncture wound without foreign body, right foot, subsequent encounter Activity Restrictions/Additional Instructions: *You have been diagnosed with [foot cellulitis, puncture wound] *What to do: *Please continue to take your regular medications as directed. [ 1] New medication prescriptions sent to your pharmacy: [Augmentin] [ ] New medication written as a paper prescription [ ] No new medications given *Please follow up with your primary care provider in 2-3 days, call for an appointment. Let them know you were seen in the Emergency Department and that we ask that you be seen in follow up. We will electronically transmit a record of today's note if your PCP is in our system. You have been taking doxycycline now for about 4 days without improvement of your cellulitis and symptoms. I spoke with our pharmacist today and we feel that you should have more broad coverage, doxycycline should have covered the staph aureus that was found on your culture obtained at your last ER visit however since you are not improving we are switching you to Augmentin, this has broader coverage including some anaerobic coverage and strep coverage. I would like you to stop taking the doxycycline and do not start the clindamycin you were prescribed. Instead take the Augmentin only for the next 10 days. There certainly a chance that your infection could worsen despite the new antibiotic or worsen suddenly; so until you had 3 or 4 doses of Augmentin on board and has seen some good improvement in the area of redness please have very low threshold to return to the emergency department if you feel that you are having worsening inflammation pain redness or swelling at the area or if you are developing persistent or high fevers nausea vomiting or generally feeling worse. I am hopeful that the Augmentin well improve her symptoms and get you feeling better quickly but pay close attention and if it is not improving things within 2 days or if you are worsening in the interim, please seek re-evaluation. *If you do not have a primary care provider please contact the [facility] Resource line at [phone]. They will ask some questions about your medical history and help get you set up with a doctor in the community. *Return to Emergency Department if you should have any new, worsening or concer maria guadalupe symptoms, such as [fever greater than 101 F, shaking chills, worsening pain, persistent vomiting or other bothersome symptoms] Prescriptions: New amoxicillin-pot clavulanate 875-125 mg tablet 1 tab PO Q12H 10 Days Qty: 20 0RF No Action sulfamethoxazole-trimethoprim [Bactrim DS] 800-160 mg tablet 2 tab PO BID 7 Days Qty: 28 0RF doxycycline hyclate 100 mg tablet 100 mg PO BID Qty: 20 0RF aspirin 81 mg tablet,delayed release (DR/EC) 162 mg PO DAILY lisinopril 10 mg tablet 10 mg PO DAILY Qty: 90 3RF amlodipine 10 mg tablet 10 mg PO DAILY Qty: 90 0RF ibuprofen 200 mg tablet 400 mg PO DAILY PRN ascorbate calcium (vitamin C) PO cholecalciferol (vitamin D3) PO hydrocodone-acetaminophen 5-325 mg tablet 1 tab PO Q6-8H PRN (Reason: severe pain) Qty: 30 0RF Rx Instructions: 1 of 3 Caution regarding possible sedation and falls. limit use as possible hydrocodone-acetaminophen 5-325 mg tablet 1 tab PO DAILY PRN (Reason: pain, severe) Qty: 30 0RF Rx Instructions: script 2 of 3 caution re sedation and falls, limit use as able hydrocodone-acetaminophen 5-325 mg tablet 1 tab PO DAILY PRN (Reason: pain, severe) Qty: 30 0RF Hold Instructions: using less than one daily Rx Instructions: caution with sedation script 3 of 3, needs visit prior to next fill metoprolol succinate 25 mg Tablet Extended Release 24 Hr 25 mg PO DAILY clindamycin HCl 150 mg capsule 450 mg PO TID 5 Days Qty: 45 0RF vitamin B complex Capsule 1 cap PO DAILY omega 3-eqt-ttl-fish oil [Fish Oil] 1,000 mg (120 mg-180 mg) Capsule 1 cap PO DAILY Referrals: Wilma Kamara DO [Primary Care Provider] - Stand Alone Forms: Patient Portal/API ED Sign-out <Hugo Tang MD - Last Filed: 11/14/23 21:04> Cosign ED Attending Cosignature Attestation: I was immediately available in the department for consultation. This documentation has been reviewed. Supervised by Hugo Tang MD
[2023-11-14 15:24] VITALS: BP 168/84; PULSE 71; RESP 14; O2SAT 98
== END 2023-11-14 15:26 | disposition home or self-care (01) ==
PROVIDERS: Emergency Provider Student in an Organized Health Care Education/Training Program; PCP Family Medicine
DX: L03.115 Cellulitis of right lower limb (principal); S91.331A Puncture wound without foreign body, right foot, initial encounter; X58.XXXA Exposure to other specified factors, initial encounter
CPT/HCPCS: 99281; 99283

== ENCOUNTER → 2024-01-27 13:57 | Outpatient (CLI) | payer OTHER, SELFPAY ==
[2024-01-28 07:10] LABS: PSA Free % 24.2 % (.); PSA, Total 8.8 ng/mL (0.0-4.0)
== END ==
PROVIDERS: PCP Family Medicine; Referring Provider Urology; Visit Provider Urology
DX: N40.1 Benign prostatic hyperplasia with lower urinary tract symptoms (principal); N13.8 Other obstructive and reflux uropathy; R97.20 Elevated prostate specific antigen [PSA]; Z80.42 Family history of malignant neoplasm of prostate; Z87.891 Personal history of nicotine dependence; Z85.51 Personal history of malignant neoplasm of bladder; Z77.22 Contact with and (suspected) exposure to environmental tobacco smoke (acute) (chronic)
CPT/HCPCS: 36415; 84153; 84154; 99214

== ENCOUNTER → 2024-02-03 19:39 | Outpatient (CLI) | payer OTHER, SELFPAY ==
--- NOTE | 2024-02-03 19:41 | DI.MRI.S_ITS ---
PROCEDURE: MR PELVIC PROSTATE PROTOCOL INDICATIONS: Elevated PSA TECHNIQUE: Coronal HASTE, axial T1 FSE with fat saturation, 3-plane nonbreath-hold T2 FSE. After the administration of contrast, dynamic axial, delayed axial and coronal VIBE or 2-D FLASH with fat saturation through the pelvis. Diffusion weighted imaging and ADC was performed. COMPARISON: None. FINDINGS: Image quality: Diffusion weighted and dynamic contrast enhanced images are diagnostic. Prostate: 6.4 x 5 x 5.8 cm. Estimated volume is 96.5 cc. PSA density is 0.0912 Transitional zone heterogenous nodules are present, either well encapsulated or mostly encapsulated, compatible with PI-RADS 1 or 2 likely BPH nodules. These findings can obscure small cancers. The seminal vesicles are clear but mildly atrophic. No definite extracapsular malignancy identified. No PI-RADS 4 or 5 lesion seen. The peripheral zone is compressed by the BPH nodules throughout the transitional zone. [id number] medial lobe hypertrophy impinges at the bladder neck. Genitourinary system: Mild bladder trabeculations and wall thickening, usually from chronic obstruction Bowel and peritoneum: Colonic diverticula. No pathologic ascites. Nodes and vessels: No aneurysmal vessel identified. No pathologic lymph nodes by size criteria. Soft tissues: Pelvic wall appears unremarkable Bones: No suspicious osseous enhancement. IMPRESSION: No PI-RADS 4 or 5 lesion identified to indicate clinically significant prostate adenocarcinoma. The predominant finding is BPH throughout the transitional zone and overall prostatomegaly. Consider continued PSA and possible MRI surveillance if clinically indicated. Other findings above. Dictated by: Sarbjit Arredondo M.D. on 02/04/2024 at 9:49 Approved by: Sarbjit Arredondo M.D. on 02/04/2024 at 9:53
== END ==
LOC: MRI 19:40
PROVIDERS: PCP Family Medicine; Referring Provider Urology; Visit Provider Urology
DX: N40.0 Benign prostatic hyperplasia without lower urinary tract symptoms (principal); R97.20 Elevated prostate specific antigen [PSA]; N32.89 Other specified disorders of bladder; K57.90 Diverticulosis of intestine, part unspecified, without perforation or abscess without bleeding
CPT/HCPCS: 72197; A9579

== ENCOUNTER → 2024-07-22 10:20 | Outpatient (CLI) | payer OTHER, SELFPAY ==
[2024-07-22 10:58] LABS: Hematocrit 36.3 % (41-53); Hemoglobin 12.4 g/dL (13.5-17.5); Mean Corpuscular HGB Conc 34.2 % (30-36); Mean Corpuscular Volume 87.7 fL (80-100); Platelet Count 460 X10^3/uL (150-400); Red Blood Cell Count 4.14 X10^6/uL (4.5-5.9); Red Cell Distribution Width 15.3 % (11.6-14.8); White Blood Cell Count 6.5 X10^3/uL (4.5-11.0)
[2024-07-22 11:26] LABS: Alanine Aminotransferase 16 IU/L (<50); Albumin 4.1 g/dL (3.5-5.0); Albumin Globulin Ratio 1.7 (1.0-2.8); Alkaline Phosphatase 58 U/L (38-126); Aspartate Aminotransferase 21 IU/L (17-59); Bilirubin Total 0.5 mg/dL (0.2-1.3); Blood Urea Nitrogen 17 mg/dL (9-20); Calcium 9.8 mg/dL (8.4-10.2); Carbon Dioxide 27 mmol/L (22-32); Chloride 105 mmol/L (98-107); Estimated Glomerular Filt Rate > 60 mL/min (>60); Globulin 2.4 g/dL (1.7-4.1); Glucose 98 mg/dL (70-99); HEMOLYSIS < 15 (0-50); Potassium 4.2 mmol/L (3.4-5.1); Sodium 140 mmol/L (137-145); Total Protein 6.5 g/dL (6.3-8.2)
[2024-07-22 11:54] LABS: Prostate Specific Antigen Scrn 28.7 ng/mL (0.1-4.0)
[2024-07-22 12:13] LABS: Vitamin B12 964 pg/mL (239-931)
[2024-07-23 05:36] LABS: CRP, High Sensitivity 7.05 mg/L (0.00-3.00)
== END ==
PROVIDERS: PCP Family Medicine; Referring Provider Family Medicine; Visit Provider Family Medicine
DX: K92.2 Gastrointestinal hemorrhage, unspecified (principal); Z12.5 Encounter for screening for malignant neoplasm of prostate; K59.00 Constipation, unspecified; M15.9 Polyosteoarthritis, unspecified; I10 Essential (primary) hypertension; R97.20 Elevated prostate specific antigen [PSA]
CPT/HCPCS: 36415; 80053; 82607; 85027; 86140; G0103

== ENCOUNTER → 2024-10-02 12:36 | Outpatient (CLI) | payer OTHER, SELFPAY ==
--- NOTE | 2024-10-02 12:37 | DI.MRI.S_ITS ---
PROCEDURE: MR CERVICAL SPINE WO CON INDICATIONS: recurrent radicular sx TECHNIQUE: Noncontrast sagittal T1 spin echo and T2 fast spin echo, sagittal STIR, foraminal oblique sagittal T2 fast spin echo, and axial gradient echo or T2 fast spin echo through the cervical spine. COMPARISON: [facility], MR, MR CERVICAL SPINE WO CON, 04/15/2020, 11:38. FINDINGS: Image quality: Excellent. Alignment and Curvature: There is straightening of normal cervical lordosis not significantly changed from prior study. Bone Marrow: There is no marrow edema. No acute vertebral body compression fracture. Spinal Cord: Visualized spinal cord has normal size and signal. No cerebellar tonsillar herniation. Paraspinous Soft Tissues: No paravertebral masses. Prevertebral soft tissues are normal in thickness. C2-C3: Central to right-sided disc bulge and bilateral facet arthrosis. Mild effacement of thecal sac anteriorly. Mild right-sided neural foraminal narrowing is also seen. C3-C4: Disc desiccation. Left lateral disc bulge and bilateral facet hypertrophic changes causing mild central canal stenosis, moderate to severe left-sided neural foraminal narrowing and mild right-sided neural foraminal narrowing. Bulging disc is seen contacting left C4 nerve root. C4-C5: Loss of disc height and disc desiccation. Broad-based disc bulge and bilateral facet hypertrophic changes causing [id number] central canal stenosis and moderate to severe bilateral neural foraminal narrowing. Bulging disc likely contacting bilateral C5 nerve roots. C5-C6: Loss of disc height and disc desiccation. Diffuse disc bulge and bilateral facet hypertrophic changes causing mild central canal stenosis, moderate to severe left-sided neural foraminal narrowing and mild right-sided neural foraminal narrowing. Bulging disc likely contacting left C6 nerve root. C6-C7: Broad-based disc bulge and bilateral facet hypertrophic changes are seen. No significant central canal stenosis. Odml-ja-bixvanor bilateral neural foraminal narrowing is noted. C7-T1: Normal appearance. IMPRESSION: 1. Worsening spondylitic changes throughout cervical spine causing various degrees of central canal stenosis and bilateral neural foraminal narrowing as described above. 2. No marrow edema. No acute vertebral body compression fracture. No abnormal cervical spinal cord signal. No gross paraspinous soft tissue abnormalities. Dictated by: Cole Samuels M.D. on 10/03/2024 at 22:44 Approved by: Cole Samuels M.D. on 10/03/2024 at 22:49
== END ==
PROVIDERS: PCP Family Medicine; Referring Provider Family Medicine; Visit Provider Family Medicine
DX: M47.22 Other spondylosis with radiculopathy, cervical region (principal); M48.02 Spinal stenosis, cervical region; Z98.890 Other specified postprocedural states
CPT/HCPCS: 72141